=== PATIENT | female | born 1950 | race Caucasian/White ===

== ENCOUNTER → 2017-04-17 | Day surgery (SDC) | payer MEDICARE, OTHER ==
[~2017-04-17] MED LIST: CITA20TA5 PO; ISOM1TAB PO; IV RINGERS,LACTATED 1000ML 1,000 ML IV SCH; LEVO175T5 PO; METF500T4 PO; METO25TA4 PO; PANT40TA5 PO; PROPOFOL 20 ML IV ONE; TRAM50TA PO
[2017-04-17 08:52] VITALS: BP 133/82
== END | disposition home or self-care (01) ==
LOC: SURG 07:22
PROVIDERS: ATTEND Internal Medicine Gastroenterology
DX: Z12.11 Encounter for screening for malignant neoplasm of colon (principal); K64.1 Second degree hemorrhoids; Z80.0 Family history of malignant neoplasm of digestive organs; K22.2 Esophageal obstruction; D64.9 Anemia, unspecified; M19.90 Unspecified osteoarthritis, unspecified site; E11.9 Type 2 diabetes mellitus without complications; E03.9 Hypothyroidism, unspecified; Z72.89 Other problems related to lifestyle; Z90.710 Acquired absence of both cervix and uterus
CPT/HCPCS: 43235; 43450; G0105; J2704

== ENCOUNTER 2019-02-15 14:51 | Inpatient (IN) | payer MEDICARE ==
[~2019-02-15] VITALS: Ht 160 cm; Wt 81.4 kg
[~2019-02-15 14:51] MED LIST changes: -CITA20TA5 PO; +CITA20TA6 PO; -IV RINGERS,LACTATED 1000ML 1,000 ML IV SCH; +METF500T16 PO; -METF500T4 PO; -PROPOFOL 20 ML IV ONE
[2019-02-15] MEDS ORDERED: MORPHINE SULFATE 2 MG/ML VIAL. IV/SQ PRN (15:30)
[2019-02-15] MEDS ORDERED: NITROGLYCERIN SUBLINGUAL 0.4 MG BOTTLE OF 25. SL PRN ×2 (15:30→18:15)
[2019-02-15 15:48] LABS: BASO % 0 % (0-3); EOS # 0.3 x10^3/uL (0.0-0.7); EOS % 2 % (0-3); HEMATOCRIT 41.7 % (36.0-47.0); HEMOGLOBIN 14.2 g/dL (12.0-15.5); LYMPH # 2.6 x10^3/uL (1.0-4.8); LYMPH % 20 % (24-48); MEAN CORPUSCULAR HEMOGLOBIN 32 pg (25-35); MEAN CORPUSCULAR HGB CONC 34 g/dL (31-37); MEAN CORPUSCULAR VOLUME 95 fL (79-100); MONO # 0.8 x10^3/uL (0.0-1.1); MONO % 7 % (0-9); NEUT % 71 % (31-73); PLATELET COUNT 279 x10^3/uL (140-400); RED BLOOD COUNT 4.37 x10^6/uL (3.50-5.40); RED CELL DISTRIBUTION WIDTH 13.2 % (11.5-14.5); WHITE BLOOD COUNT 12.8 x10^3/uL (4.0-11.0)
[2019-02-15 15:54] LABS: PROTHROMBIN TIME PATIENT 12.2 SEC (11.7-14.0)
[2019-02-15 15:57] LABS: CALCIUM 9.5 mg/dL (8.5-10.1); CREATININE 0.9 mg/dL (0.6-1.0); GFR 62.5; POTASSIUM 3.7 mmol/L (3.5-5.1)
[2019-02-15 16:00] LABS: D-DIMER 1.85 ug/mlFEU (0.00-0.50)
--- NOTE | 2019-02-15 16:02 | EKG ---
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
[2019-02-15 16:03] LABS: ALBUMIN 4.1 g/dL (3.4-5.0); ALBUMIN/GLOBULIN RATIO 1.1 (1.0-1.7); MAGNESIUM 1.9 mg/dL (1.8-2.4); TOTAL BILIRUBIN 0.5 mg/dL (0.2-1.0); TOTAL PROTEIN 7.7 g/dL (6.4-8.2)
--- NOTE | 2019-02-15 16:03 | EKG ---
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
[2019-02-15] MEDS ORDERED: IOHEXOL 300 MG/ML 100ML VIAL. IV ONE (16:15)
[2019-02-15] MEDS ORDERED: CONTRAST GIVEN. MC PRN (16:15)
--- NOTE | 2019-02-15 16:32 | RAD ---
CT HEAD AND CERVICAL SPINE WO Indication: Pain after fall. Exposure: One or more of the following individualized dose reduction techniques were utilized for this examination: 1. Automated exposure control 2. Adjustment of the mA and/or kV according to patient size 3. Use of iterative reconstruction technique. Technique: Standard imaging without intravenous contrast. Head: No evidence of acute intracranial hemorrhage, mass effect, midline shift or abnormal extra-axial fluid collection. The ventricles and sulci appear symmetric. Rayo-white matter distinction is intact. The globes appear symmetric. There is right scalp density and swelling in the right frontal and temporal region, likely a hematoma. Partially visualized sinuses are clear. No evidence of depressed skull fracture. IMPRESSION: Right frontal scalp hematoma. No evidence of acute intracranial hemorrhage. Cervical spine: Ring of C1 is intact. Cervico-occipital junction is intact. C1 and C2 appears symmetric. No evidence of acute fracture or aggressive bone destruction. Vertebral body height is intact. No significant subluxation. No evidence of perched or locked facet joint. There is degenerative spondylosis, greatest at C5-C6 and C6-C7. Mild to moderate spinal canal narrowing as well as neural foraminal stenosis. Lung apices are clear. No evidence of prevertebral soft tissue swelling or hematoma. Thyroid demonstrates no focal lesion. IMPRESSION: Degenerative spondylosis. No evidence of acute fracture or subluxation. Electronically signed by: Ulices King MD (02/15/2019 4:29 PM) [facility]
--- NOTE | 2019-02-15 16:39 | RAD ---
CT scan of the thoracic spine without contrast 02/15/2019 CLINICAL HISTORY: Fall down stairs. Mid back pain TECHNIQUE: 3 mm reconstructed sagittal, axial and coronal images of the thoracic spine were obtained from the data set generated during the patient's CT scan of the chest abdomen and pelvis. One or more of the following individualized dose reduction techniques were utilized for this study: 1. Automated exposure control. 2. Adjustment of the mA and/or kV according to patient size. 3. Use of iterative reconstruction technique. , FINDINGS: Sagittal and coronal reconstructed images demonstrate minimal S-shaped curvature of the thoracolumbar spine. Degenerative changes are seen throughout the thoracic disc spaces consisting of vertebral endplate sclerosis and minimal to mild anterior vertebral body osteophyte formation. A relatively acute appearing compression fracture of the T11 vertebral body is seen. This vertebral body has lost approximately 10 percent of its normal height. No retropulsion of bone fragments into the central spinal canal is seen. No additional acute fracture of the thoracic vertebrae is noted. No subluxation is seen. IMPRESSION: Relatively acute compression fracture of the T11 vertebral body is seen. No retropulsion of bone fragments into the central spinal canal is noted. Electronically signed by: Brad Branch MD (02/15/2019 4:36 PM) [facility]
[2019-02-15 16:41] LABS: BILIRUBIN,URINE NEGATIVE (NEG); CLARITY,URINE CLEAR; COLOR,URINE YELLOW; NITRITE,URINE NEGATIVE (NEG); PH,URINE 5.5; PROTEIN,URINE NEGATIVE (NEG-TRACE); UROBILINOGEN,URINE 0.2 mg/dL (0.2 mg/dL)
[2019-02-15 16:48] LABS: AMPHETAMINE/METHAMPHETAMINE NEG (NEG); BARBITURATES NEG (NEG); BENZODIAZEPINES NEG (NEG); CANNABINOIDS NEG (NEG); COCAINE NEG (NEG); HYALINE CASTS, URINE FEW /HPF; METHADONE NEG (NEG); OPIATES NEG (NEG); PHENCYCLIDINE NEG (NEG); SQUAMOUS EPITHELIAL CELL,UR FEW /LPF
[2019-02-15 16:49] LABS: BACTERIA,URINE 0 /HPF (0-FEW)
--- NOTE | 2019-02-15 16:50 | RAD ---
CT LUMBAR SPINE RECONSTRUCTION, CT CHEST ABD PELVIS W/CONTRAST Indication: Chest and back pain after a fall. Exposure: One or more of the following individualized dose reduction techniques were utilized for this examination: 1. Automated exposure control 2. Adjustment of the mA and/or kV according to patient size 3. Use of iterative reconstruction technique. Technique: Intravenous contrast was given. No oral contrast per request. Comparison: No prior studies are currently available. CHEST: Thoracic aorta demonstrates no evidence of aneurysm or dissection, mildly tortuous. Main pulmonary artery is grossly patent. No pericardial effusion. No pleural effusion. No significant lymph node enlargement. Calcified nodule right lung base, compatible with a granuloma. No evidence of lung consolidation. No evidence of pneumothorax. Trachea and mainstem bronchi are grossly patent. No evidence of a displaced fracture although a specific area of pain or impact is not known. There is a compression fracture of the T11 vertebral body, will be more fully evaluated in the separate thoracic spine CT which is reported separately. IMPRESSION: No acute findings in the chest. T11 vertebral body fracture, reported separately. Abdomen pelvis: Liver and spleen appear unremarkable. No perihepatic or perisplenic fluid or stranding is seen. No peripancreatic fluid or stranding. No adrenal mass. Kidneys demonstrate symmetric enhancement without hydronephrosis or abnormality. No calcified gallstone. Aorta mildly calcified and tortuous, no aneurysm or para-aortic hematoma. No significant lymph node enlargement. Minimal stranding within the central mesenteric fat. Small hiatal hernia. No significant small bowel distention. No evidence of acute colitis. The appendix is not well seen. No evidence of ascites or pneumoperitoneum. No evidence of an acute fracture of the skeletal pelvis. IMPRESSION: No acute findings in the abdomen or pelvis. Lumbar spine: The lumbar vertebral body height is maintained. Alignment is intact. No evidence of acute fracture or aggressive bone destruction. Sacroiliac joints appear intact. There is degenerative multilevel spondylosis. IMPRESSION: No evidence of acute fracture or subluxation of the lumbar spine. See separate thoracic spine CT report. Electronically signed by: Ulices King MD (02/15/2019 4:47 PM) [facility] [place]
--- NOTE | 2019-02-15 17:23 | PHYS DOC ---
Past Medical History Past Medical History: Hypothyroid (LAVELL BONILLA APRN) Past Surgical History: Hysterectomy, Oophorectomy, Other Additional Past Surgical Histo: R. ELBOW (LAVELL BONILLA APRN) Alcohol Use: None Drug Use: None (LAVELL BONILLA APRN) Adult General Chief Complaint Chief Complaint: MECHANICAL FALL HPI HPI Patient is a 68 year old female with a history of hypertension, hypothyroidism, who presents to the ED today to be evaluated status post falling. Patient states she had flat shoes on and was walking down some steps at home prior to coming to the ED, she states she believes she tripped on her feet and fell landing on her back and hitting her right forehead on the doorknob. Patient denies any loss of consciousness, denies being on any anticoagulants. She rates her pain at 8 out of 10 mostly on the right forehead, in between her shoulder blades, and substernal chest area. She states the substernal chest pain. She states most of the pain is worse on movement. Denies any hematuria. Denies any shortness of breath. She is in a c-collar. (LAVELL BONILLA APRN) Review of Systems Review of Systems Constitutional: Denies fever or chills [] Eyes: Denies change in visual acuity, redness, or eye pain [] HENT: Denies nasal congestion or sore throat [] Respiratory: Denies cough or shortness of breath [] Cardiovascular: Reports substernal chest pain. GI: Denies abdominal pain, nausea, vomiting, bloody stools or diarrhea [] : Denies dysuria or hematuria [] Musculoskeletal: Reports pain between her shoulder blades. Integument: Denies rash or skin lesions [] Neurologic: Reports right forehead pain, denies focal weakness or sensory changes [] All other systems were reviewed and found to be within normal limits, except as documented in this note. (LAVELL BONILLA APRN) Current Medications Current Medications Current Medications Medications (Trade) Dose Ordered Sig/Coleen Start Time Stop Time Status Last Admin Dose Admin Aspirin (Elroy Aspirin) 325 mg 1X ONCE 02/15/19 18:00 02/15/19 18:01 DC 02/15/19 17:58 325 MG Info (CONTRAST GIVEN -- Rx MONITORING) 1 each PRN DAILY PRN 02/15/19 16:15 02/17/19 16:14 Iohexol (Omnipaque 300 Mg/ml) 75 ml 1X ONCE 02/15/19 16:15 02/15/19 16:16 DC 02/15/19 16:20 75 ML Morphine Sulfate (Morphine Sulfate) 2 mg PRN Q15MIN PRN 02/15/19 15:30 02/16/19 15:29 DC Nitroglycerin (Nitrostat) 0.4 mg PRN Q5MIN PRN 02/15/19 15:30 02/16/19 15:29 DC 02/15/19 16:25 0.4 MG (ULICES WHITEHEAD DO) Allergies Allergies Allergies Coded Allergies Type Severity Reaction Last Updated Verified No Known Drug Allergies 04/17/17 No (ULICES WHITEHEAD DO) Physical Exam Physical Exam Constitutional: Well developed, well nourished, no acute distress, non-toxic appearance. [] HENT: Normocephalic, atraumatic, bilateral external ears normal, oropharynx moist, no oral exudates, nose normal. [] Eyes: PERRLA, EOMI, conjunctiva normal, no discharge. [] Neck: C-collar present. Limited range of motion to the cervical spine due to the c-collar. Slight tenderness on the paraspinal muscle of the left cervical spine, no midline cervical spine tenderness, supple, no stridor. [] Cardiovascular:Heart rate regular rhythm, no murmur [] Lungs & Thorax: Bilateral breath sounds clear to auscultation [] Abdomen: Bowel sounds normal, soft, no tenderness, no masses, no pulsatile masses. [] Skin: Warm, dry, no erythema, no rash. [] Back: Mild midline tenderness on palpation of thoracic spine, no CVA tenderness. [] Extremities: No tenderness, no cyanosis, no clubbing, ROM intact, no edema. [] Neurologic: Alert and oriented X 3, normal motor function, normal sensory function, no focal deficits noted. Cranial nerves II through XII intact. Right forehead with a contusion. Psychologic: Affect normal, judgement normal, mood normal. [] (LAVELL BONILLA APRN) Physical Exam Constitutional: Well developed, well nourished, no acute distress, non-toxic appearance. [] HENT: Normocephalic, atraumatic Eyes: PERRL, EOMI, conjunctiva normal, no discharge. [] Neck: C-collar in place. Cardiovascular: Heart rate regular rhythm Lungs & Thorax: Chest wall discomfort with palpation, bilateral breath sounds clear to auscultation [] Skin: Warm, dry, no erythema Extremities: No tenderness, ROM intact, no edema. [] Neurologic: Alert and oriented X 3, speech normal (WHITEHEAD,ULICES R DO) Current Patient Data Vital Signs Vital Signs Date Time Temp Pulse Resp B/P (MAP) Pulse Ox O2 Delivery O2 Flow Rate FiO2 02/15/19 18:01 82 97 02/15/19 17:31 19 02/15/19 16:25 194/80 02/15/19 15:03 97.7 Room Air 97.7 (WHITEHEAD,ULICES R DO) Lab Values Laboratory Tests Test 02/15/19 15:35 02/15/19 16:30 White Blood Count 12.8 x10^3/uL (4.0-11.0) H Red Blood Count 4.37 x10^6/uL (3.50-5.40) Hemoglobin 14.2 g/dL (12.0-15.5) Hematocrit 41.7 % (36.0-47.0) Mean Corpuscular Volume 95 fL (79-100) Mean Corpuscular Hemoglobin 32 pg (25-35) Mean Corpuscular Hemoglobin Concent 34 g/dL (31-37) Red Cell Distribution Width 13.2 % (11.5-14.5) Platelet Count 279 x10^3/uL (140-400) Neutrophils (%) (Auto) 71 % (31-73) Lymphocytes (%) (Auto) 20 % (24-48) L Monocytes (%) (Auto) 7 % (0-9) Eosinophils (%) (Auto) 2 % (0-3) Basophils (%) (Auto) 0 % (0-3) Neutrophils # (Auto) 9.0 x10^3uL (1.8-7.7) H Lymphocytes # (Auto) 2.6 x10^3/uL (1.0-4.8) Monocytes # (Auto) 0.8 x10^3/uL (0.0-1.1) Eosinophils # (Auto) 0.3 x10^3/uL (0.0-0.7) Basophils # (Auto) 0.0 x10^3/uL (0.0-0.2) Prothrombin Time 12.2 SEC (11.7-14.0) Prothrombin Time INR 0.9 (0.8-1.1) PTT 25 SEC (24-38) D-Dimer (Karin) 1.85 ug/mlFEU (0.00-0.50) H Sodium Level 139 mmol/L (136-145) Potassium Level 3.7 mmol/L (3.5-5.1) Chloride Level 101 mmol/L (98-107) Carbon Dioxide Level 26 mmol/L (21-32) Anion Gap 12 (6-14) Blood Urea Nitrogen 19 mg/dL (7-20) Creatinine 0.9 mg/dL (0.6-1.0) Estimated GFR (Cockcroft-Gault) 62.5 BUN/Creatinine Ratio 21 (6-20) H Glucose Level 112 mg/dL (70-99) H Calcium Level 9.5 mg/dL (8.5-10.1) Magnesium Level 1.9 mg/dL (1.8-2.4) Total Bilirubin 0.5 mg/dL (0.2-1.0) Aspartate Amino Transferase (AST) 23 U/L (15-37) Alanine Aminotransferase (ALT) 23 U/L (14-59) Alkaline Phosphatase 47 U/L (46-116) Creatine Kinase 121 U/L (26-192) Creatine Kinase MB (Mass) 2.9 ng/mL (0.0-3.6) Creatine Kinase MB Relative Index 2.4 % (0-4) Troponin I Quantitative < 0.017 ng/mL (0.000-0.055) VA-Rhr-F-Type Natriuretic Peptide 165 pg/mL (0-124) H Total Protein 7.7 g/dL (6.4-8.2) Albumin 4.1 g/dL (3.4-5.0) Albumin/Globulin Ratio 1.1 (1.0-1.7) Thyroid Stimulating Hormone (TSH) 12.445 uIU/mL (0.358-3.74) H Urine Collection Type Unknown Urine Color Yellow Urine Clarity Clear Urine pH 5.5 Urine Specific Dulzura 1.020 Urine Protein Negative mg/dL (NEG-TRACE) Urine Glucose (UA) Negative mg/dL (NEG) Urine Ketones (Stick) Negative mg/dL (NEG) Urine Blood Trace (NEG) Urine Nitrite Negative (NEG) Urine Bilirubin Negative (NEG) Urine Urobilinogen Dipstick 0.2 mg/dL (0.2 mg/dL) Urine Leukocyte Esterase Negative (NEG) Urine RBC 1-2 /HPF (0-2) Urine WBC 1-4 /HPF (0-4) Urine Squamous Epithelial Cells Few /LPF Urine Bacteria 0 /HPF (0-FEW) Urine Hyaline Casts Few /HPF Urine Mucus Slight /LPF Urine Opiates Screen Neg (NEG) Urine Methadone Screen Neg (NEG) Urine Barbiturates Neg (NEG) Urine Phencyclidine Screen Neg (NEG) Urine Amphetamine/Methamphetamine Neg (NEG) Urine Benzodiazepines Screen Neg (NEG) Urine Cocaine Screen Neg (NEG) Urine Cannabinoids Screen Neg (NEG) Urine Ethyl Alcohol Neg (NEG) Laboratory Tests 02/15/19 15:35 Laboratory Tests 02/15/19 15:35 (ULICES WHITEHEAD DO) EKG EKG Dr. Whitehead will document on the ED.[] (LAVELL BONILLA APRN) EKG @1500 NSR at 78bpm, ST depression II and V4-V6, nonspecific t wave inversion III and V1-V2, RBBB, no prior EKG per [facility] for comparison. @1540 NSR at 71bpm, ST depression II and V4-V6 and nonspecific t wave inversion III and V1-V2, RBBB, all remonstrated in comparison to prior from today. (ULICES WHITEHEAD DO) Radiology/Procedures Radiology/Procedures []PROCEDURE: CT CHEST ABD PELVIS W/CONTRAST CT LUMBAR SPINE RECONSTRUCTION, CT CHEST ABD PELVIS W/CONTRAST Indication: Chest and back pain after a fall. Exposure: One or more of the following individualized dose reduction techniques were utilized for this examination: 1. Automated exposure control 2. Adjustment of the mA and/or kV according to patient size 3. Use of iterative reconstruction technique. Technique: Intravenous contrast was given. No oral contrast per request. Comparison: No prior studies are currently available. CHEST: Thoracic aorta demonstrates no evidence of aneurysm or dissection, mildly tortuous. Main pulmonary artery is grossly patent. No pericardial effusion. No pleural effusion. No significant lymph node enlargement. Calcified nodule right lung base, compatible with a granuloma. No evidence of lung consolidation. No evidence of pneumothorax. Trachea and mainstem bronchi are grossly patent. No evidence of a displaced fracture although a specific area of pain or impact is not known. There is a compression fracture of the T11 vertebral body, will be more fully evaluated in the separate thoracic spine CT which is reported separately. IMPRESSION: No acute findings in the chest. T11 vertebral body fracture, reported separately. Abdomen pelvis: Liver and spleen appear unremarkable. No perihepatic or perisplenic fluid or stranding is seen. No peripancreatic fluid or stranding. No adrenal mass. Kidneys demonstrate symmetric enhancement without hydronephrosis or abnormality. No calcified gallstone. Aorta mildly calcified and tortuous, no aneurysm or para-aortic hematoma. No significant lymph node enlargement. Minimal stranding within the central mesenteric fat. Small hiatal hernia. No significant small bowel distention. No evidence of acute colitis. The appendix is not well seen. No evidence of ascites or pneumoperitoneum. No evidence of an acute fracture of the skeletal pelvis. IMPRESSION: No acute findings in the abdomen or pelvis. Lumbar spine: The lumbar vertebral body height is maintained. Alignment is intact. No evidence of acute fracture or aggressive bone destruction. Sacroiliac joints appear intact. There is degenerative multilevel spondylosis. IMPRESSION: No evidence of acute fracture or subluxation of the lumbar spine. See separate thoracic spine CT report. Electronically signed by: Ulices King MD (02/15/2019 4:47 PM) [facility] DICTATED and SIGNED BY: ULICES KING MD DATE: 02/15/19 1647 PROCEDURE: CT HEAD AND CERVICAL SPINE WO CT HEAD AND CERVICAL SPINE WO Indication: Pain after fall. Exposure: One or more of the following individualized dose reduction techniques were utilized for this examination: 1. Automated exposure control 2. Adjustment of the mA and/or kV according to patient size 3. Use of iterative reconstruction technique. Technique: Standard imaging without intravenous contrast. Head: No evidence of acute intracranial hemorrhage, mass effect, midline shift or abnormal extra-axial fluid collection. The ventricles and sulci appear symmetric. Rayo-white matter distinction is intact. The globes appear symmetric. There is right scalp density and swelling in the right frontal and temporal region, likely a hematoma. Partially visualized sinuses are clear. No evidence of depressed skull fracture. IMPRESSION: Right frontal scalp hematoma. No evidence of acute intracranial hemorrhage. Cervical spine: Ring of C1 is intact. Cervico-occipital junction is intact. C1 and C2 appears symmetric. No evidence of acute fracture or aggressive bone destruction. Vertebral body height is intact. No significant subluxation. No evidence of perched or locked facet joint. There is degenerative spondylosis, greatest at C5-C6 and C6-C7. Mild to moderate spinal canal narrowing as well as neural foraminal stenosis. Lung apices are clear. No evidence of prevertebral soft tissue swelling or hematoma. Thyroid demonstrates no focal lesion. IMPRESSION: Degenerative spondylosis. No evidence of acute fracture or subluxation. Electronically signed by: Ulices King MD (02/15/2019 4:29 PM) [facility] [place] DICTATED and SIGNED BY: ULICES KING MD DATE: 02/15/19 4657 (LAVELL BONILLA APRN) Course & Med Decision Making Course & Med Decision Making Pertinent Labs and Imaging studies reviewed. (See chart for details) This is a 68-year-old female patient presenting to the ED today status post falling down 7 steps. No loss of consciousness. Patient had an EKG done, EKG was abnormal, EKG was reviewed by Dr. Whitehead and . Patient was admitted for the abnormal EKG. Troponin is normal. CBC with a WBC of 12.8, CMP with no acute findings, TSH 12.445-Dr. Washington stated he will increase patient's Synthroid. CT of the head, cervical spine, lumbar spine, negative for any acute findings, thoracic CT noted for T11 fracture, patient states she believes this is chronic. Routine consult placed for neurosurgery. CTA chest and abdomen were negative. Dr. Washington accepted patient for admission. Repeat troponins were placed. Dr. Starks will f/u with patient. Admitted on CVC (LAVELL BONILLA APRN) Course & Med Decision Making Discussed case with Dr. Starks (cardiology) who evaluated EKGs and does not appreciated STEMI findings. Recommends serial troponin and supportive care at this time. (ULICES WHITEHEAD DO) Dragon Disclaimer Dragon Disclaimer This electronic medical record was generated, in whole or in part, using a voice recognition dictation system. (LAVELL BONILLA APRN) Departure Departure Impression: Primary Impression: Abnormal EKG Additional Impressions: Hypothyroidism T11 vertebral fracture Fall Disposition: ADMITTED INPATIENT Condition: STABLE Referrals: EMETERIO TANNER MD (PCP) Attending Signature Attending Signature I have personally interviewed and examined the patient. All charts, labs, and im aging studies were reviewed. I agree with the PA/SPORTS MEDICINE PHYSICIAN's findings, exam, and plan. (ULICES WHITEHEAD DO) Problem Qualifiers Additional Impressions: Hypothyroidism Hypothyroidism type: unspecified Qualified Codes: E03.9 - Hypothyroidism, unspecified T11 vertebral fracture Encounter type: initial encounter Fracture type: closed Fracture morphology: other fracture Qualified Codes: S22.088A - Other fracture of t11-T12 vertebra, initial encounter for closed fracture Fall Encounter type: initial encounter Qualified Codes: W19.XXXA - Unspecified fall, initial encounter LAVELL BONILLA APRN February 15, 2019 17:23 ULICES WHITEHEAD DO February 15, 2019 20:11
[2019-02-15] MEDS ORDERED: ASPIRIN 325 MG TABLET PO ONE (18:00)
[2019-02-15] MEDS ORDERED: MORPHINE SULFATE 4 MG/ML VIAL. IV PRN (18:15)
[2019-02-15] MEDS ORDERED: ONDANSETRON PF 4 MG/2 ML VIAL. IV PRN (18:15)
--- NOTE | 2019-02-15 18:53 | HP ---
ADMIT DATE: 02/15/2019 CHIEF COMPLAINT: Mechanical fall. HISTORY OF PRESENT ILLNESS: The patient is a pleasant 68-year-old female who fell. She was wearing some flat shoes and fell down some stairs. She did strike her head. In fact, the door, which is made of steel has a big dent in it. She was brought in by ambulance, when we manda the lab, her TSH was quite high at 12. She admits that she has not been taking her Synthroid or some of her other meds as well. Rates her pain at 8/10. She has associated weakness, worse with moving, better with sitting still, described as irritating. I discussed the case with the ER physician. We are going to admit the patient and consult Cardiology because she does complain of some chest pain as well. PAST MEDICAL HISTORY: Hypothyroidism, noncompliance, hysterectomy, oophorectomy, right elbow surgery. ALLERGIES: None. FAMILY HISTORY: Coronary artery disease. SOCIAL HISTORY: She does not drink, smoke or take drugs. She is . Her is on hospice. She is pretty upset about this, was even crying at one time while I was examining her. PHYSICAL EXAMINATION: HEART: Normal S1, S2. LUNGS: Clear to auscultation. ABDOMEN: Soft, positive bowel sounds. EXTREMITIES: Trace edema. SKIN: No rashes. She does have a big abrasion, right forehead. ENDOCRINE: No thyromegaly. LYMPHATICS: No cervical nodes. HEMATOLOGY: No apparent bruising. PSYCHIATRIC: She is depressed. NEUROLOGICAL: She is alert and oriented, moving all extremities. LABORATORY DATA: White count is 12.8, hemoglobin 14, platelets 279. Urinalysis negative. Her troponin is 0. CPK 2.9, albumin 4.1, creatinine 0.9. Chest x-ray was negative, but she does have a T11 compression fracture. ASSESSMENT AND PLAN: Fall with compression fracture and chest pain. The patient has been admitted. We will consult Cardiology. Continue home medicines. I did increase her Synthroid, PT, OT, frequent labs, IV hydration. Wound care. TOTAL TIME: 32 minutes. DANILO HAMILTON DO DR: NATAN/king JOB#: [id number] / [id number]
[2019-02-15] MEDS ORDERED: ASA/APAP/CAFFEINE 250/250/65MG TABLET. PO PRN (19:30)
[2019-02-15 20:20] VITALS: BP 175/99
[2019-02-15] MEDS ORDERED: LEVO75TA5 PO (22:44)
[2019-02-15] MEDS ORDERED: LISI10TA2 PO (22:44)
[2019-02-15 23:00] VITALS: BP 176/84
[2019-02-15] MEDS: traMADol 50 MG TABLET PO PRN (23:09)
[2019-02-15] MEDS: LISINOPRIL 10 MG TABLET PO SCH (23:10)
[2019-02-16] MEDS: ACETAMINOPHEN 325 MG TABLET. PO PRN ×2 (02:00→16:18)
[2019-02-16 03:00] VITALS: BP 135/73
[2019-02-16] MEDS ORDERED: LEVOTHYROXINE 125 MCG TABLET PO SCH (06:00)
[2019-02-16] MEDS ORDERED: LEVOTHYROXINE 100 MCG TABLET PO SCH (06:00)
[2019-02-16 06:08] LABS: BASO % 0 % (0-3); EOS # 0.2 x10^3/uL (0.0-0.7); EOS % 2 % (0-3); HEMATOCRIT 39.4 % (36.0-47.0); HEMOGLOBIN 13.7 g/dL (12.0-15.5); LYMPH % 22 % (24-48); MEAN CORPUSCULAR HEMOGLOBIN 33 pg (25-35); MEAN CORPUSCULAR HGB CONC 35 g/dL (31-37); MEAN CORPUSCULAR VOLUME 95 fL (79-100); MONO # 0.9 x10^3/uL (0.0-1.1); MONO % 10 % (0-9); NEUT # 6.1 x10^3uL (1.8-7.7); NEUT % 66 % (31-73); PLATELET COUNT 267 x10^3/uL (140-400); RED BLOOD COUNT 4.14 x10^6/uL (3.50-5.40); RED CELL DISTRIBUTION WIDTH 13.2 % (11.5-14.5); WHITE BLOOD COUNT 9.2 x10^3/uL (4.0-11.0)
[2019-02-16 06:21] LABS: CALCIUM 9.2 mg/dL (8.5-10.1); CREATININE 0.9 mg/dL (0.6-1.0); GFR 62.5; POTASSIUM 4.7 mmol/L (3.5-5.1)
[2019-02-16 07:00] VITALS: BP 145/75
[2019-02-16] MEDS ORDERED: PANTOPRAZOLE 40 MG TABLET.DR. PO SCH (07:30)
[2019-02-16] MEDS: LEVOTHYROXINE 75 MCG TABLET PO SCH (09:03)
[2019-02-16] MEDS: traMADol 50 MG TABLET PO PRN (09:04)
--- NOTE | 2019-02-16 09:38 | PDOC2 ---
CARDIAC CONSULT DATE OF CONSULT Date of Consult DATE: 02/16/19 TIME: 09:32 REASON FOR CONSULT Reason for Consult: Abnormal EKG REFERRING PHYSICIAN Referring Physician: Donya Fontanez APRN SOURCE Source: Chart review, Patient HISTORY OF PRESENT ILLNESS HISTORY OF PRESENT ILLNESS This is a 68 yo female who presented secondary to falling down stairs prior to arrival. Patient reports she was going down the stairs with flats on. Thinks she slipped ad began falling. Was able to grabbed the railing. Went down 8 stairs was feel head first into a metal door at the bottom of the stairs. No LOC. Denies any precipitating dizziness, diaphoresis, palpitations, chest pain, or shortness of breath. C/o upper back and left shoulder pain and headache. Does reports experiencing intermittent central sharp chest pain intermittently for the last month or so. Occasionally gets tingling in her finger and pain across her shoulder blades in her upper back. No specific precipitating or worsening factors. No associated SOA, dizziness, diaphoresis, or nausea/vomiting. EKG notable for RBBB. Patient thinks she may have been told this before. Reports having stress test at [facility] within the last couple of years that was reportedly normal. 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 PAST MEDICAL HISTORY Cardiovascular: HTN Pulmonary: No pertinent hx GI: GERD Heme/Onc: Anemia NOS Hepatobiliary: No pertinent hx Psych: No pertinent hx Musculoskeletal: Osteoarthritis Infectious disease: No pertinent hx ENT: No pertinent hx Renal/: No pertinent hx Endocrine: Diabetes, Hypothyroidism Dermatology: No pertinent hx PAST SURGICAL HISTORY Past Surgical History: Tonsillectomy, Hysterectomy, Other (oophorectomy ) FAMILY HISTORY Family History: Coronary Artery Disease, Diabetes, Hypertension SOCIAL HISTORY Smoke: No ALCOHOL: none Drugs: None Lives: with Family CURRENT MEDICATIONS CURRENT MEDICATIONS Current Medications Medications (Trade) Dose Ordered Sig/Coleen Route PRN Reason Start Time Stop Time Status Last Admin Dose Admin Nitroglycerin (Nitrostat) 0.4 mg PRN Q5MIN PRN SL CP RATING > 1/10 02/15/19 15:30 02/16/19 15:29 02/15/19 16:25 Iohexol (Omnipaque 300 Mg/ml) 75 ml 1X ONCE IV 02/15/19 16:15 02/15/19 16:16 DC 02/15/19 16:20 Aspirin (Elroy Aspirin) 325 mg 1X ONCE PO 02/15/19 18:00 02/15/19 18:01 DC 02/15/19 17:58 Tramadol HCl (Ultram) 50 mg PRN Q6HRS PRN PO PAIN 02/15/19 18:15 02/16/19 09:04 Acetaminophen (Tylenol) 650 mg PRN Q4HRS PRN PO FEVER 02/15/19 18:15 02/16/19 18:14 02/16/19 02:00 Levothyroxine Sodium (Synthroid) 75 mcg DAILY06 PO 02/16/19 06:00 02/16/19 09:03 Lisinopril (Prinivil) 10 mg DAILY PO 02/15/19 23:00 02/15/19 23:10 ALLERGIES ALLERGIES: Coded Allergies: No Known Drug Allergies (Unverified , 04/17/17) ROS Review of System 14 point ROS conducted with pertinent positives noted above in HPI PHYSICAL EXAM General: Alert, Oriented X3, Cooperative, No acute distress HEENT: Atraumatic, Mucous membr. moist/pink Lungs: Clear to auscultation, Normal air movement Heart: Regular rate, Normal S1, Normal S2, No murmurs Abdomen: Soft, No tenderness Extremities: No cyanosis, No edema, Normal pulses Skin: No significant lesion Neuro: Normal speech, Strength at 5/5 X4 ext, Sensation intact Psych/Mental Status: Mental status NL, Mood NL MUSCULOSKELETAL: Osteoarthritic changes both hands VITALS VITALS Vital Signs Date Time Temp Pulse Resp B/P (MAP) Pulse Ox O2 Delivery O2 Flow Rate FiO2 02/16/19 09:04 18 Room Air 02/16/19 08:00 97.0 02/16/19 07:00 97.9 63 145/75 (98) 97.9 02/16/19 03:00 96 LABS Lab: Laboratory Tests Test 02/15/19 15:35 02/15/19 16:30 02/15/19 20:45 02/16/19 05:40 White Blood Count 12.8 x10^3/uL (4.0-11.0) 9.2 x10^3/uL (4.0-11.0) Red Blood Count 4.37 x10^6/uL (3.50-5.40) 4.14 x10^6/uL (3.50-5.40) Hemoglobin 14.2 g/dL (12.0-15.5) 13.7 g/dL (12.0-15.5) Hematocrit 41.7 % (36.0-47.0) 39.4 % (36.0-47.0) Mean Corpuscular Volume 95 fL (79-100) 95 fL (79-100) Mean Corpuscular Hemoglobin 32 pg (25-35) 33 pg (25-35) Mean Corpuscular Hemoglobin Concent 34 g/dL (31-37) 35 g/dL (31-37) Red Cell Distribution Width 13.2 % (11.5-14.5) 13.2 % (11.5-14.5) Platelet Count 279 x10^3/uL (140-400) 267 x10^3/uL (140-400) Neutrophils (%) (Auto) 71 % (31-73) 66 % (31-73) Lymphocytes (%) (Auto) 20 % (24-48) 22 % (24-48) Monocytes (%) (Auto) 7 % (0-9) 10 % (0-9) Eosinophils (%) (Auto) 2 % (0-3) 2 % (0-3) Basophils (%) (Auto) 0 % (0-3) 0 % (0-3) Neutrophils # (Auto) 9.0 x10^3uL (1.8-7.7) 6.1 x10^3uL (1.8-7.7) Lymphocytes # (Auto) 2.6 x10^3/uL (1.0-4.8) 2.0 x10^3/uL (1.0-4.8) Monocytes # (Auto) 0.8 x10^3/uL (0.0-1.1) 0.9 x10^3/uL (0.0-1.1) Eosinophils # (Auto) 0.3 x10^3/uL (0.0-0.7) 0.2 x10^3/uL (0.0-0.7) Basophils # (Auto) 0.0 x10^3/uL (0.0-0.2) 0.0 x10^3/uL (0.0-0.2) Prothrombin Time 12.2 SEC (11.7-14.0) Prothromb Time International Ratio 0.9 (0.8-1.1) Activated Partial Thromboplast Time 25 SEC (24-38) D-Dimer (Karin) 1.85 ug/mlFEU (0.00-0.50) Sodium Level 139 mmol/L (136-145) 142 mmol/L (136-145) Potassium Level 3.7 mmol/L (3.5-5.1) 4.7 mmol/L (3.5-5.1) Chloride Level 101 mmol/L (98-107) 105 mmol/L (98-107) Carbon Dioxide Level 26 mmol/L (21-32) 27 mmol/L (21-32) Anion Gap 12 (6-14) 10 (6-14) Blood Urea Nitrogen 19 mg/dL (7-20) 18 mg/dL (7-20) Creatinine 0.9 mg/dL (0.6-1.0) 0.9 mg/dL (0.6-1.0) Estimated GFR (Cockcroft-Gault) 62.5 62.5 BUN/Creatinine Ratio 21 (6-20) Glucose Level 112 mg/dL (70-99) 121 mg/dL (70-99) Calcium Level 9.5 mg/dL (8.5-10.1) 9.2 mg/dL (8.5-10.1) Magnesium Level 1.9 mg/dL (1.8-2.4) Total Bilirubin 0.5 mg/dL (0.2-1.0) Aspartate Amino Transf (AST/SGOT) 23 U/L (15-37) Alanine Aminotransferase (ALT/SGPT) 23 U/L (14-59) Alkaline Phosphatase 47 U/L (46-116) Creatine Kinase 121 U/L (26-192) Creatine Kinase MB (Mass) 2.9 ng/mL (0.0-3.6) Creatine Kinase MB Relative Index 2.4 % (0-4) Troponin I Quantitative < 0.017 ng/mL (0.000-0.055) < 0.017 ng/mL (0.000-0.055) < 0.017 ng/mL (0.000-0.055) ET-Ici-D-Type Natriuretic Peptide 165 pg/mL (0-124) Total Protein 7.7 g/dL (6.4-8.2) Albumin 4.1 g/dL (3.4-5.0) Albumin/Globulin Ratio 1.1 (1.0-1.7) Thyroid Stimulating Hormone (TSH) 12.445 uIU/mL (0.358-3.74) Urine Collection Type Unknown Urine Color Yellow Urine Clarity Clear Urine pH 5.5 Urine Specific [place] 1.020 Urine Protein Negative mg/dL (NEG-TRACE) Urine Glucose (UA) Negative mg/dL (NEG) Urine Ketones (Stick) Negative mg/dL (NEG) Urine Blood Trace (NEG) Urine Nitrite Negative (NEG) Urine Bilirubin Negative (NEG) Urine Urobilinogen Dipstick 0.2 mg/dL (0.2 mg/dL) Urine Leukocyte Esterase Negative (NEG) Urine RBC 1-2 /HPF (0-2) Urine WBC 1-4 /HPF (0-4) Urine Squamous Epithelial Cells Few /LPF Urine Bacteria 0 /HPF (0-FEW) Urine Hyaline Casts Few /HPF Urine Mucus Slight /LPF Urine Opiates Screen Neg (NEG) Urine Methadone Screen Neg (NEG) Urine Barbiturates Neg (NEG) Urine Phencyclidine Screen Neg (NEG) Urine Amphetamine/Methamphetamine Neg (NEG) Urine Benzodiazepines Screen Neg (NEG) Urine Cocaine Screen Neg (NEG) Urine Cannabinoids Screen Neg (NEG) Urine Ethyl Alcohol Neg (NEG) ASSESSMENT/PLAN ASSESSMENT/PLAN 1. Mechanical fall, traumatic with T11 vertebral body fracture and left shoulder pain. Ortho consulted. 2. Abnormal EKG; EKG with RBBB. No previous for comparison 3. Accelerated hypertension; labile 4. Chest pain, atypical. Intermittent for the last month or so. AMI ruled out 4. Diabetes, II; as per PCP 5. Hypothyroidism; TSH 12 Recommendations Echo to assess LV systolic function Lipid panel- statin if indicated Resume home antiHTN therapy. Monitor to assess need for therapy titration. Hydralazine IV PRN Consider outpatient ischemic eval Supportive care BAL MTZ APRN February 16, 2019 09:38
[2019-02-16 10:16] LABS: CHOLESTEROL/HDL RATIO 5.4
[2019-02-16] MEDS: CITALOPRAM 20 MG TABLET. PO SCH (10:38)
[2019-02-16] MEDS: METOPROLOL TART IMMED RELEASE 25 MG TABLET. PO SCH (10:39)
[2019-02-16] MEDS: LISINOPRIL 10 MG TABLET PO SCH (10:40)
--- NOTE | 2019-02-16 10:57 | PDOC ---
[employer] PROGRESS NOTE Chief Complaint Chief Complaint Mechanical fall T-11 fracture Chest pain Hypothyroidism History of Present Illness History of Present Illness Patient seen and examined Her level of distress has decreased since admission She complains of global body aches, prominently L shoulder pain and neck tension Discussed with family Vitals Vitals Vital Signs Date Time Temp Pulse Resp B/P (MAP) Pulse Ox O2 Delivery O2 Flow Rate FiO2 02/16/19 10:40 63 145/75 02/16/19 09:04 18 Room Air 02/16/19 08:00 97.0 02/16/19 07:00 97.9 97.9 02/16/19 03:00 96 Physical Exam General: Alert, Oriented X3, Cooperative, mild distress Heart: Regular rate, Normal S1 Abdomen: Normal bowel sounds, Soft Extremities: No clubbing, No cyanosis Skin: No rashes, Other (multiple bruises) Labs LABS Laboratory Tests Test 02/15/19 15:35 02/15/19 16:30 02/15/19 20:45 02/16/19 05:40 White Blood Count 12.8 x10^3/uL (4.0-11.0) 9.2 x10^3/uL (4.0-11.0) Red Blood Count 4.37 x10^6/uL (3.50-5.40) 4.14 x10^6/uL (3.50-5.40) Hemoglobin 14.2 g/dL (12.0-15.5) 13.7 g/dL (12.0-15.5) Hematocrit 41.7 % (36.0-47.0) 39.4 % (36.0-47.0) Mean Corpuscular Volume 95 fL (79-100) 95 fL (79-100) Mean Corpuscular Hemoglobin 32 pg (25-35) 33 pg (25-35) Mean Corpuscular Hemoglobin Concent 34 g/dL (31-37) 35 g/dL (31-37) Red Cell Distribution Width 13.2 % (11.5-14.5) 13.2 % (11.5-14.5) Platelet Count 279 x10^3/uL (140-400) 267 x10^3/uL (140-400) Neutrophils (%) (Auto) 71 % (31-73) 66 % (31-73) Lymphocytes (%) (Auto) 20 % (24-48) 22 % (24-48) Monocytes (%) (Auto) 7 % (0-9) 10 % (0-9) Eosinophils (%) (Auto) 2 % (0-3) 2 % (0-3) Basophils (%) (Auto) 0 % (0-3) 0 % (0-3) Neutrophils # (Auto) 9.0 x10^3uL (1.8-7.7) 6.1 x10^3uL (1.8-7.7) Lymphocytes # (Auto) 2.6 x10^3/uL (1.0-4.8) 2.0 x10^3/uL (1.0-4.8) Monocytes # (Auto) 0.8 x10^3/uL (0.0-1.1) 0.9 x10^3/uL (0.0-1.1) Eosinophils # (Auto) 0.3 x10^3/uL (0.0-0.7) 0.2 x10^3/uL (0.0-0.7) Basophils # (Auto) 0.0 x10^3/uL (0.0-0.2) 0.0 x10^3/uL (0.0-0.2) Prothrombin Time 12.2 SEC (11.7-14.0) Prothromb Time International Ratio 0.9 (0.8-1.1) Activated Partial Thromboplast Time 25 SEC (24-38) D-Dimer (Karin) 1.85 ug/mlFEU (0.00-0.50) Sodium Level 139 mmol/L (136-145) 142 mmol/L (136-145) Potassium Level 3.7 mmol/L (3.5-5.1) 4.7 mmol/L (3.5-5.1) Chloride Level 101 mmol/L (98-107) 105 mmol/L (98-107) Carbon Dioxide Level 26 mmol/L (21-32) 27 mmol/L (21-32) Anion Gap 12 (6-14) 10 (6-14) Blood Urea Nitrogen 19 mg/dL (7-20) 18 mg/dL (7-20) Creatinine 0.9 mg/dL (0.6-1.0) 0.9 mg/dL (0.6-1.0) Estimated GFR (Cockcroft-Gault) 62.5 62.5 BUN/Creatinine Ratio 21 (6-20) Glucose Level 112 mg/dL (70-99) 121 mg/dL (70-99) Calcium Level 9.5 mg/dL (8.5-10.1) 9.2 mg/dL (8.5-10.1) Magnesium Level 1.9 mg/dL (1.8-2.4) Total Bilirubin 0.5 mg/dL (0.2-1.0) Aspartate Amino Transf (AST/SGOT) 23 U/L (15-37) Alanine Aminotransferase (ALT/SGPT) 23 U/L (14-59) Alkaline Phosphatase 47 U/L (46-116) Creatine Kinase 121 U/L (26-192) Creatine Kinase MB (Mass) 2.9 ng/mL (0.0-3.6) Creatine Kinase MB Relative Index 2.4 % (0-4) Troponin I Quantitative < 0.017 ng/mL (0.000-0.055) < 0.017 ng/mL (0.000-0.055) < 0.017 ng/mL (0.000-0.055) VY-Zij-U-Type Natriuretic Peptide 165 pg/mL (0-124) Total Protein 7.7 g/dL (6.4-8.2) Albumin 4.1 g/dL (3.4-5.0) Albumin/Globulin Ratio 1.1 (1.0-1.7) Thyroid Stimulating Hormone (TSH) 12.445 uIU/mL (0.358-3.74) Urine Collection Type Unknown Urine Color Yellow Urine Clarity Clear Urine pH 5.5 Urine Specific [place] 1.020 Urine Protein Negative mg/dL (NEG-TRACE) Urine Glucose (UA) Negative mg/dL (NEG) Urine Ketones (Stick) Negative mg/dL (NEG) Urine Blood Trace (NEG) Urine Nitrite Negative (NEG) Urine Bilirubin Negative (NEG) Urine Urobilinogen Dipstick 0.2 mg/dL (0.2 mg/dL) Urine Leukocyte Esterase Negative (NEG) Urine RBC 1-2 /HPF (0-2) Urine WBC 1-4 /HPF (0-4) Urine Squamous Epithelial Cells Few /LPF Urine Bacteria 0 /HPF (0-FEW) Urine Hyaline Casts Few /HPF Urine Mucus Slight /LPF Urine Opiates Screen Neg (NEG) Urine Methadone Screen Neg (NEG) Urine Barbiturates Neg (NEG) Urine Phencyclidine Screen Neg (NEG) Urine Amphetamine/Methamphetamine Neg (NEG) Urine Benzodiazepines Screen Neg (NEG) Urine Cocaine Screen Neg (NEG) Urine Cannabinoids Screen Neg (NEG) Urine Ethyl Alcohol Neg (NEG) Triglycerides Level 218 mg/dL (0-150) Cholesterol Level 200 mg/dL (0-200) LDL Cholesterol, Calculated 119 mg/dL (0-100) VLDL Cholesterol, Calculated 44 mg/dL (0-40) Non-HDL Cholesterol Calculated 163 mg/dL (0-129) HDL Cholesterol 37 mg/dL (40-60) Cholesterol/HDL Ratio 5.4 Review of Systems Review of Systems Patient complains of L shoulder pain Patient complains of increased neck tension Patient denies abdominal pain Assessment and Plan Assessmemt and Plan Assessment: Mechanical fall T-11 fracture Chest pain Hypothyroidism- TSH 12.4 Plan: Cardiac Monitoring Pain meds prn Home meds PT/OT DVT ppx Full code IR consult T-11 fracture consider kyphoplasty Ortho consult- L shoulder injury Cardio and Pulm are currently following Await subspecialist input Comment Review of Relevant I have reviewed the following items david (where applicable) has been applied. Labs Laboratory Tests Test 02/15/19 15:35 02/15/19 16:30 02/15/19 20:45 02/16/19 05:40 White Blood Count 12.8 x10^3/uL (4.0-11.0) 9.2 x10^3/uL (4.0-11.0) Red Blood Count 4.37 x10^6/uL (3.50-5.40) 4.14 x10^6/uL (3.50-5.40) Hemoglobin 14.2 g/dL (12.0-15.5) 13.7 g/dL (12.0-15.5) Hematocrit 41.7 % (36.0-47.0) 39.4 % (36.0-47.0) Mean Corpuscular Volume 95 fL (79-100) 95 fL (79-100) Mean Corpuscular Hemoglobin 32 pg (25-35) 33 pg (25-35) Mean Corpuscular Hemoglobin Concent 34 g/dL (31-37) 35 g/dL (31-37) Red Cell Distribution Width 13.2 % (11.5-14.5) 13.2 % (11.5-14.5) Platelet Count 279 x10^3/uL (140-400) 267 x10^3/uL (140-400) Neutrophils (%) (Auto) 71 % (31-73) 66 % (31-73) Lymphocytes (%) (Auto) 20 % (24-48) 22 % (24-48) Monocytes (%) (Auto) 7 % (0-9) 10 % (0-9) Eosinophils (%) (Auto) 2 % (0-3) 2 % (0-3) Basophils (%) (Auto) 0 % (0-3) 0 % (0-3) Neutrophils # (Auto) 9.0 x10^3uL (1.8-7.7) 6.1 x10^3uL (1.8-7.7) Lymphocytes # (Auto) 2.6 x10^3/uL (1.0-4.8) 2.0 x10^3/uL (1.0-4.8) Monocytes # (Auto) 0.8 x10^3/uL (0.0-1.1) 0.9 x10^3/uL (0.0-1.1) Eosinophils # (Auto) 0.3 x10^3/uL (0.0-0.7) 0.2 x10^3/uL (0.0-0.7) Basophils # (Auto) 0.0 x10^3/uL (0.0-0.2) 0.0 x10^3/uL (0.0-0.2) Prothrombin Time 12.2 SEC (11.7-14.0) Prothromb Time International Ratio 0.9 (0.8-1.1) Activated Partial Thromboplast Time 25 SEC (24-38) D-Dimer (Karin) 1.85 ug/mlFEU (0.00-0.50) Sodium Level 139 mmol/L (136-145) 142 mmol/L (136-145) Potassium Level 3.7 mmol/L (3.5-5.1) 4.7 mmol/L (3.5-5.1) Chloride Level 101 mmol/L (98-107) 105 mmol/L (98-107) Carbon Dioxide Level 26 mmol/L (21-32) 27 mmol/L (21-32) Anion Gap 12 (6-14) 10 (6-14) Blood Urea Nitrogen 19 mg/dL (7-20) 18 mg/dL (7-20) Creatinine 0.9 mg/dL (0.6-1.0) 0.9 mg/dL (0.6-1.0) Estimated GFR (Cockcroft-Gault) 62.5 62.5 BUN/Creatinine Ratio 21 (6-20) Glucose Level 112 mg/dL (70-99) 121 mg/dL (70-99) Calcium Level 9.5 mg/dL (8.5-10.1) 9.2 mg/dL (8.5-10.1) Magnesium Level 1.9 mg/dL (1.8-2.4) Total Bilirubin 0.5 mg/dL (0.2-1.0) Aspartate Amino Transf (AST/SGOT) 23 U/L (15-37) Alanine Aminotransferase (ALT/SGPT) 23 U/L (14-59) Alkaline Phosphatase 47 U/L (46-116) Creatine Kinase 121 U/L (26-192) Creatine Kinase MB (Mass) 2.9 ng/mL (0.0-3.6) Creatine Kinase MB Relative Index 2.4 % (0-4) Troponin I Quantitative < 0.017 ng/mL (0.000-0.055) < 0.017 ng/mL (0.000-0.055) < 0.017 ng/mL (0.000-0.055) JC-Gwt-W-Type Natriuretic Peptide 165 pg/mL (0-124) Total Protein 7.7 g/dL (6.4-8.2) Albumin 4.1 g/dL (3.4-5.0) Albumin/Globulin Ratio 1.1 (1.0-1.7) Thyroid Stimulating Hormone (TSH) 12.445 uIU/mL (0.358-3.74) Urine Collection Type Unknown Urine Color Yellow Urine Clarity Clear Urine pH 5.5 Urine Specific [place] 1.020 Urine Protein Negative mg/dL (NEG-TRACE) Urine Glucose (UA) Negative mg/dL (NEG) Urine Ketones (Stick) Negative mg/dL (NEG) Urine Blood Trace (NEG) Urine Nitrite Negative (NEG) Urine Bilirubin Negative (NEG) Urine Urobilinogen Dipstick 0.2 mg/dL (0.2 mg/dL) Urine Leukocyte Esterase Negative (NEG) Urine RBC 1-2 /HPF (0-2) Urine WBC 1-4 /HPF (0-4) Urine Squamous Epithelial Cells Few /LPF Urine Bacteria 0 /HPF (0-FEW) Urine Hyaline Casts Few /HPF Urine Mucus Slight /LPF Urine Opiates Screen Neg (NEG) Urine Methadone Screen Neg (NEG) Urine Barbiturates Neg (NEG) Urine Phencyclidine Screen Neg (NEG) Urine Amphetamine/Methamphetamine Neg (NEG) Urine Benzodiazepines Screen Neg (NEG) Urine Cocaine Screen Neg (NEG) Urine Cannabinoids Screen Neg (NEG) Urine Ethyl Alcohol Neg (NEG) Triglycerides Level 218 mg/dL (0-150) Cholesterol Level 200 mg/dL (0-200) LDL Cholesterol, Calculated 119 mg/dL (0-100) VLDL Cholesterol, Calculated 44 mg/dL (0-40) Non-HDL Cholesterol Calculated 163 mg/dL (0-129) HDL Cholesterol 37 mg/dL (40-60) Cholesterol/HDL Ratio 5.4 Laboratory Tests Test 02/15/19 15:35 02/15/19 16:30 02/15/19 20:45 02/16/19 05:40 White Blood Count 12.8 x10^3/uL (4.0-11.0) 9.2 x10^3/uL (4.0-11.0) Red Blood Count 4.37 x10^6/uL (3.50-5.40) 4.14 x10^6/uL (3.50-5.40) Hemoglobin 14.2 g/dL (12.0-15.5) 13.7 g/dL (12.0-15.5) Hematocrit 41.7 % (36.0-47.0) 39.4 % (36.0-47.0) Mean Corpuscular Volume 95 fL (79-100) 95 fL (79-100) Mean Corpuscular Hemoglobin 32 pg (25-35) 33 pg (25-35) Mean Corpuscular Hemoglobin Concent 34 g/dL (31-37) 35 g/dL (31-37) Red Cell Distribution Width 13.2 % (11.5-14.5) 13.2 % (11.5-14.5) Platelet Count 279 x10^3/uL (140-400) 267 x10^3/uL (140-400) Neutrophils (%) (Auto) 71 % (31-73) 66 % (31-73) Lymphocytes (%) (Auto) 20 % (24-48) 22 % (24-48) Monocytes (%) (Auto) 7 % (0-9) 10 % (0-9) Eosinophils (%) (Auto) 2 % (0-3) 2 % (0-3) Basophils (%) (Auto) 0 % (0-3) 0 % (0-3) Neutrophils # (Auto) 9.0 x10^3uL (1.8-7.7) 6.1 x10^3uL (1.8-7.7) Lymphocytes # (Auto) 2.6 x10^3/uL (1.0-4.8) 2.0 x10^3/uL (1.0-4.8) Monocytes # (Auto) 0.8 x10^3/uL (0.0-1.1) 0.9 x10^3/uL (0.0-1.1) Eosinophils # (Auto) 0.3 x10^3/uL (0.0-0.7) 0.2 x10^3/uL (0.0-0.7) Basophils # (Auto) 0.0 x10^3/uL (0.0-0.2) 0.0 x10^3/uL (0.0-0.2) Prothrombin Time 12.2 SEC (11.7-14.0) Prothromb Time International Ratio 0.9 (0.8-1.1) Activated Partial Thromboplast Time 25 SEC (24-38) D-Dimer (Karin) 1.85 ug/mlFEU (0.00-0.50) Sodium Level 139 mmol/L (136-145) 142 mmol/L (136-145) Potassium Level 3.7 mmol/L (3.5-5.1) 4.7 mmol/L (3.5-5.1) Chloride Level 101 mmol/L (98-107) 105 mmol/L (98-107) Carbon Dioxide Level 26 mmol/L (21-32) 27 mmol/L (21-32) Anion Gap 12 (6-14) 10 (6-14) Blood Urea Nitrogen 19 mg/dL (7-20) 18 mg/dL (7-20) Creatinine 0.9 mg/dL (0.6-1.0) 0.9 mg/dL (0.6-1.0) Estimated GFR (Cockcroft-Gault) 62.5 62.5 BUN/Creatinine Ratio 21 (6-20) Glucose Level 112 mg/dL (70-99) 121 mg/dL (70-99) Calcium Level 9.5 mg/dL (8.5-10.1) 9.2 mg/dL (8.5-10.1) Magnesium Level 1.9 mg/dL (1.8-2.4) Total Bilirubin 0.5 mg/dL (0.2-1.0) Aspartate Amino Transf (AST/SGOT) 23 U/L (15-37) Alanine Aminotransferase (ALT/SGPT) 23 U/L (14-59) Alkaline Phosphatase 47 U/L (46-116) Creatine Kinase 121 U/L (26-192) Creatine Kinase MB (Mass) 2.9 ng/mL (0.0-3.6) Creatine Kinase MB Relative Index 2.4 % (0-4) Troponin I Quantitative < 0.017 ng/mL (0.000-0.055) < 0.017 ng/mL (0.000-0.055) < 0.017 ng/mL (0.000-0.055) NN-Cdr-A-Type Natriuretic Peptide 165 pg/mL (0-124) Total Protein 7.7 g/dL (6.4-8.2) Albumin 4.1 g/dL (3.4-5.0) Albumin/Globulin Ratio 1.1 (1.0-1.7) Thyroid Stimulating Hormone (TSH) 12.445 uIU/mL (0.358-3.74) Urine Collection Type Unknown Urine Color Yellow Urine Clarity Clear Urine pH 5.5 Urine Specific [place] 1.020 Urine Protein Negative mg/dL (NEG-TRACE) Urine Glucose (UA) Negative mg/dL (NEG) Urine Ketones (Stick) Negative mg/dL (NEG) Urine Blood Trace (NEG) Urine Nitrite Negative (NEG) Urine Bilirubin Negative (NEG) Urine Urobilinogen Dipstick 0.2 mg/dL (0.2 mg/dL) Urine Leukocyte Esterase Negative (NEG) Urine RBC 1-2 /HPF (0-2) Urine WBC 1-4 /HPF (0-4) Urine Squamous Epithelial Cells Few /LPF Urine Bacteria 0 /HPF (0-FEW) Urine Hyaline Casts Few /HPF Urine Mucus Slight /LPF Urine Opiates Screen Neg (NEG) Urine Methadone Screen Neg (NEG) Urine Barbiturates Neg (NEG) Urine Phencyclidine Screen Neg (NEG) Urine Amphetamine/Methamphetamine Neg (NEG) Urine Benzodiazepines Screen Neg (NEG) Urine Cocaine Screen Neg (NEG) Urine Cannabinoids Screen Neg (NEG) Urine Ethyl Alcohol Neg (NEG) Triglycerides Level 218 mg/dL (0-150) Cholesterol Level 200 mg/dL (0-200) LDL Cholesterol, Calculated 119 mg/dL (0-100) VLDL Cholesterol, Calculated 44 mg/dL (0-40) Non-HDL Cholesterol Calculated 163 mg/dL (0-129) HDL Cholesterol 37 mg/dL (40-60) Cholesterol/HDL Ratio 5.4 Medications Current Medications Nitroglycerin (Nitrostat) 0.4 mg PRN Q5MIN PRN SL CP RATING > 1/10 Last administered on 02/15/19at 16:25; Start 02/15/19 at 15:30; Stop 02/16/19 at 15:29 Morphine Sulfate (Morphine Sulfate) 2 mg PRN Q15MIN PRN IV/SQ PAIN GREATER THAN 3/10; Start 02/15/19 at 15:30; Stop 02/16/19 at 15:29 Iohexol (Omnipaque 300 Mg/ml) 75 ml 1X ONCE IV Last administered on 02/15/19at 16:20; Start 02/15/19 at 16:15; Stop 02/15/19 at 16:16; Status DC Info (CONTRAST GIVEN -- Rx MONITORING) 1 each PRN DAILY PRN MC SEE COMMENTS; Start 02/15/19 at 16:15; Stop 02/17/19 at 16:14 Aspirin (Elroy Aspirin) 325 mg 1X ONCE PO Last administered on 02/15/19at 17:58; Start 02/15/19 at 18:00; Stop 02/15/19 at 18:01; Status DC Citalopram Hydrobromide (CeleXA) 20 mg DAILY PO Last administered on 02/16/19at 10:38; Start 02/16/19 at 09:00 Levothyroxine Sodium (Synthroid) 100 mcg DAILY06 PO ; Start 02/16/19 at 06:00; Stop 02/16/19 at 06:00; Status DC Metoprolol Tartrate (Lopressor) 25 mg DAILY PO Last administered on 02/16/19at 10:39; Start 02/16/19 at 09:00 Pantoprazole Sodium (Protonix) 40 mg DAILYAC PO Last administered on 02/16/19at 10:39; Start 02/16/19 at 07:30 Tramadol HCl (Ultram) 50 mg PRN Q6HRS PRN PO PAIN Last administered on 02/16/19at 09:04; Start 02/15/19 at 18:15 Acetaminophen/ Aspirin/Caffeine (Excedrin Migraine) 1 tab PRN Q6HRS PRN PO MIGRAINE HEADACHE; Start 02/15/19 at 19:30 Ondansetron HCl (Zofran) 4 mg PRN Q8HRS PRN IV NAUSEA/VOMITING; Start 02/15/19 at 18:15; Stop 02/16/19 at 18:14 Morphine Sulfate (Morphine Sulfate) 4 mg PRN Q2HR PRN IV PAIN; Start 02/15/19 at 18:15; Stop 02/16/19 at 18:14 Acetaminophen (Tylenol) 650 mg PRN Q4HRS PRN PO FEVER Last administered on 02/16/19at 02:00; Start 02/15/19 at 18:15; Stop 02/16/19 at 18:14 Nitroglycerin (Nitrostat) 0.4 mg PRN Q5MIN PRN SL CHEST PAIN; Start 02/15/19 at 18:15; Stop 02/16/19 at 18:14 Levothyroxine Sodium (Synthroid) 125 mcg DAILY06 PO ; Start 02/16/19 at 06:00; Stop 02/16/19 at 06:00; Status DC Levothyroxine Sodium (Synthroid) 75 mcg DAILY06 PO Last administered on 02/16/19at 09:03; Start 02/16/19 at 06:00 Lisinopril (Prinivil) 10 mg DAILY PO Last administered on 02/16/19at 10:40; Start 02/15/19 at 23:00 Active Scripts Active Reported Levothyroxine Sodium 75 Mcg Tablet 75 Mcg PO DAILY Lisinopril 10 Mg Tablet 10 Mg PO DAILY Prodrin Caplet (Isometheptene/Acetaminoph/Caff) 1 Each Tablet 1 Each PO PRN Pantoprazole Sodium 40 Mg Tablet.dr 40 Mg PO DAILY Tramadol Hcl 50 Mg Tablet 50 Mg PO Q6H PRN Metformin Hcl 500 Mg Tablet 500 Mg PO BIDWMEALS Levothyroxine Sodium 175 Mcg Tablet 1 Tab PO DAILY Vitals/I & O Vital Sign - Last 24 Hours 02/15/19 02/15/19 02/15/19 02/15/19 15:03 16:25 16:31 16:53 Temp 97.7 97.7 Pulse 80 80 80 82 Resp 20 19 B/P (MAP) 206/100 (135) 194/80 Pulse Ox 97 97 97 O2 Delivery Room Air 02/15/19 02/15/19 02/15/19 02/15/19 17:01 17:31 18:01 18:31 Pulse 84 76 82 78 Resp 19 20 Pulse Ox 97 98 97 97 02/15/19 02/15/19 02/15/19 02/15/19 19:33 20:02 20:20 22:00 Temp 98.2 98.2 Pulse 86 74 78 Resp 20 17 18 B/P (MAP) 175/99 (124) Pulse Ox 97 97 97 O2 Delivery Room Air Room Air 02/15/19 02/15/19 02/15/19 02/16/19 23:00 23:09 23:10 00:09 Temp 97.5 97.5 Pulse 70 78 Resp 18 20 20 B/P (MAP) 176/84 (114) 175/99 Pulse Ox 97 97 97 O2 Delivery Room Air Room Air Room Air 02/16/19 02/16/19 02/16/19 02/16/19 03:00 07:00 08:00 09:04 Temp 98.1 97.9 98.1 97.9 Pulse 69 63 Resp 18 14 18 B/P (MAP) 135/73 (93) 145/75 (98) Pulse Ox 96 O2 Delivery Room Air Room Air Room Air Room Air O2 Flow Rate 97.0 97.0 02/16/19 02/16/19 10:39 10:40 Pulse 63 63 B/P (MAP) 145/75 145/75 Intake and Output 02/15/19 02/15/19 02/16/19 14:59 22:59 06:59 Output Total 575 ml Balance -575 ml DANILO HAMILTON III DO February 16, 2019 10:57
[2019-02-16 11:00] VITALS: BP 168/72
--- NOTE | 2019-02-16 12:10 | PDOC2 ---
CONSULT Date of Consult Date of Consult DATE: 02/16/19 TIME: 12:06 Reason for Consult Reason for Consult: left shoulder pain Identification/Chief Complaint Chief Complaint left shoulder pain Source Source: Chart review, Patient History of Present Illness Reason for Visit: 68 year old woman who fell down the stairs. She hit her head on a steel door at the bottom, and dented the door. She has a thoracic compression fracture. She tried to keep from falling by grabbing the rail with her left hand, and may have also landed on the left shoulder. She has left shoulder pain and a bruise. Past Medical History Cardiovascular: HTN GI: GERD Heme/Onc: Anemia NOS Musculoskeletal: Osteoarthritis Endocrine: Diabetes, Hypothyroidism Past Surgical History Past Surgical History: Tonsillectomy, Hysterectomy Current Medications Current Medications Current Medications Nitroglycerin (Nitrostat) 0.4 mg PRN Q5MIN PRN SL CP RATING > 1/10 Last administered on 02/15/19at 16:25; Start 02/15/19 at 15:30; Stop 02/16/19 at 15:29 Morphine Sulfate (Morphine Sulfate) 2 mg PRN Q15MIN PRN IV/SQ PAIN GREATER THAN 3/10; Start 02/15/19 at 15:30; Stop 02/16/19 at 15:29 Iohexol (Omnipaque 300 Mg/ml) 75 ml 1X ONCE IV Last administered on 02/15/19at 16:20; Start 02/15/19 at 16:15; Stop 02/15/19 at 16:16; Status DC Info (CONTRAST GIVEN -- Rx MONITORING) 1 each PRN DAILY PRN MC SEE COMMENTS; Start 02/15/19 at 16:15; Stop 02/17/19 at 16:14 Aspirin (Elroy Aspirin) 325 mg 1X ONCE PO Last administered on 02/15/19at 17:58; Start 02/15/19 at 18:00; Stop 02/15/19 at 18:01; Status DC Citalopram Hydrobromide (CeleXA) 20 mg DAILY PO Last administered on 02/16/19at 10:38; Start 02/16/19 at 09:00 Levothyroxine Sodium (Synthroid) 100 mcg DAILY06 PO ; Start 02/16/19 at 06:00; Stop 02/16/19 at 06:00; Status DC Metoprolol Tartrate (Lopressor) 25 mg DAILY PO Last administered on 02/16/19 10:39; Start 02/16/19 at 09:00 Pantoprazole Sodium (Protonix) 40 mg DAILYAC PO Last administered on 02/16/19at 10:39; Start 02/16/19 at 07:30 Tramadol HCl (Ultram) 50 mg PRN Q6HRS PRN PO PAIN Last administered on 02/16/19 09:04; Start 02/15/19 at 18:15 Acetaminophen/ Aspirin/Caffeine (Excedrin Migraine) 1 tab PRN Q6HRS PRN PO MIGRAINE HEADACHE; Start 02/15/19 at 19:30 Ondansetron HCl (Zofran) 4 mg PRN Q8HRS PRN IV NAUSEA/VOMITING Last administered on 02/16/19at 11:26; Start 02/15/19 at 18:15; Stop 02/16/19 at 18:14 Morphine Sulfate (Morphine Sulfate) 4 mg PRN Q2HR PRN IV PAIN; Start 02/15/19 at 18:15; Stop 02/16/19 at 18:14 Acetaminophen (Tylenol) 650 mg PRN Q4HRS PRN PO FEVER Last administered on 02/16/19 02:00; Start 02/15/19 at 18:15; Stop 02/16/19 at 18:14 Nitroglycerin (Nitrostat) 0.4 mg PRN Q5MIN PRN SL CHEST PAIN; Start 02/15/19 at 18:15; Stop 02/16/19 at 18:14 Levothyroxine Sodium (Synthroid) 125 mcg DAILY06 PO ; Start 02/16/19 at 06:00; Stop 02/16/19 at 06:00; Status DC Levothyroxine Sodium (Synthroid) 75 mcg DAILY06 PO Last administered on 02/16/19at 09:03; Start 02/16/19 at 06:00 Lisinopril (Prinivil) 10 mg DAILY PO Last administered on 02/16/19at 10:40; Start 02/15/19 at 23:00 Active Scripts Active Reported Levothyroxine Sodium 75 Mcg Tablet 75 Mcg PO DAILY Lisinopril 10 Mg Tablet 10 Mg PO DAILY Prodrin Caplet (Isometheptene/Acetaminoph/Caff) 1 Each Tablet 1 Each PO PRN Pantoprazole Sodium 40 Mg Tablet.dr 40 Mg PO DAILY Tramadol Hcl 50 Mg Tablet 50 Mg PO Q6H PRN Metformin Hcl 500 Mg Tablet 500 Mg PO BIDWMEALS Levothyroxine Sodium 175 Mcg Tablet 1 Tab PO DAILY Allergies Allergies: Coded Allergies: No Known Drug Allergies (Unverified , 04/17/17) Physical Exam General: Alert, Cooperative HEENT: Other (icepack on forehead) Extremities: Normal pulses, Other (lateral ecchymosis. Able to forward flex the shoulder to 135, and abduct to 90, with seemingly intact rotator cuff although she did have pain with activation of the supraspinatus. There is slight crepitus with range of motion which may indicate a small cuff tear or bursal inflammation. She also has mild tenderness at the acromioclavicular joint but no deformity at that joint. She has lateral ecchymosis and some tenderness about the deltoid insertion region on the lateral humerus. The distal neurovascular function is normal) Skin: No breakdown, Other (lateral shoulder/humerus ecchymosis) Neuro: Sensation intact Vitals VITALS Vital Signs Date Time Temp Pulse Resp B/P (MAP) Pulse Ox O2 Delivery O2 Flow Rate FiO2 02/16/19 11:00 98.2 62 12 168/72 (104) 96 Room Air 98.2 02/16/19 08:00 97.0 Labs Labs Laboratory Tests Test 02/15/19 15:35 02/15/19 16:30 02/15/19 20:45 02/16/19 05:40 White Blood Count 12.8 x10^3/uL (4.0-11.0) 9.2 x10^3/uL (4.0-11.0) Red Blood Count 4.37 x10^6/uL (3.50-5.40) 4.14 x10^6/uL (3.50-5.40) Hemoglobin 14.2 g/dL (12.0-15.5) 13.7 g/dL (12.0-15.5) Hematocrit 41.7 % (36.0-47.0) 39.4 % (36.0-47.0) Mean Corpuscular Volume 95 fL (79-100) 95 fL (79-100) Mean Corpuscular Hemoglobin 32 pg (25-35) 33 pg (25-35) Mean Corpuscular Hemoglobin Concent 34 g/dL (31-37) 35 g/dL (31-37) Red Cell Distribution Width 13.2 % (11.5-14.5) 13.2 % (11.5-14.5) Platelet Count 279 x10^3/uL (140-400) 267 x10^3/uL (140-400) Neutrophils (%) (Auto) 71 % (31-73) 66 % (31-73) Lymphocytes (%) (Auto) 20 % (24-48) 22 % (24-48) Monocytes (%) (Auto) 7 % (0-9) 10 % (0-9) Eosinophils (%) (Auto) 2 % (0-3) 2 % (0-3) Basophils (%) (Auto) 0 % (0-3) 0 % (0-3) Neutrophils # (Auto) 9.0 x10^3uL (1.8-7.7) 6.1 x10^3uL (1.8-7.7) Lymphocytes # (Auto) 2.6 x10^3/uL (1.0-4.8) 2.0 x10^3/uL (1.0-4.8) Monocytes # (Auto) 0.8 x10^3/uL (0.0-1.1) 0.9 x10^3/uL (0.0-1.1) Eosinophils # (Auto) 0.3 x10^3/uL (0.0-0.7) 0.2 x10^3/uL (0.0-0.7) Basophils # (Auto) 0.0 x10^3/uL (0.0-0.2) 0.0 x10^3/uL (0.0-0.2) Prothrombin Time 12.2 SEC (11.7-14.0) Prothromb Time International Ratio 0.9 (0.8-1.1) Activated Partial Thromboplast Time 25 SEC (24-38) D-Dimer (Karin) 1.85 ug/mlFEU (0.00-0.50) Sodium Level 139 mmol/L (136-145) 142 mmol/L (136-145) Potassium Level 3.7 mmol/L (3.5-5.1) 4.7 mmol/L (3.5-5.1) Chloride Level 101 mmol/L (98-107) 105 mmol/L (98-107) Carbon Dioxide Level 26 mmol/L (21-32) 27 mmol/L (21-32) Anion Gap 12 (6-14) 10 (6-14) Blood Urea Nitrogen 19 mg/dL (7-20) 18 mg/dL (7-20) Creatinine 0.9 mg/dL (0.6-1.0) 0.9 mg/dL (0.6-1.0) Estimated GFR (Cockcroft-Gault) 62.5 62.5 BUN/Creatinine Ratio 21 (6-20) Glucose Level 112 mg/dL (70-99) 121 mg/dL (70-99) Calcium Level 9.5 mg/dL (8.5-10.1) 9.2 mg/dL (8.5-10.1) Magnesium Level 1.9 mg/dL (1.8-2.4) Total Bilirubin 0.5 mg/dL (0.2-1.0) Aspartate Amino Transf (AST/SGOT) 23 U/L (15-37) Alanine Aminotransferase (ALT/SGPT) 23 U/L (14-59) Alkaline Phosphatase 47 U/L (46-116) Creatine Kinase 121 U/L (26-192) Creatine Kinase MB (Mass) 2.9 ng/mL (0.0-3.6) Creatine Kinase MB Relative Index 2.4 % (0-4) Troponin I Quantitative < 0.017 ng/mL (0.000-0.055) < 0.017 ng/mL (0.000-0.055) < 0.017 ng/mL (0.000-0.055) LZ-Jik-Z-Type Natriuretic Peptide 165 pg/mL (0-124) Total Protein 7.7 g/dL (6.4-8.2) Albumin 4.1 g/dL (3.4-5.0) Albumin/Globulin Ratio 1.1 (1.0-1.7) Thyroid Stimulating Hormone (TSH) 12.445 uIU/mL (0.358-3.74) Urine Collection Type Unknown Urine Color Yellow Urine Clarity Clear Urine pH 5.5 Urine Specific [place] 1.020 Urine Protein Negative mg/dL (NEG-TRACE) Urine Glucose (UA) Negative mg/dL (NEG) Urine Ketones (Stick) Negative mg/dL (NEG) Urine Blood Trace (NEG) Urine Nitrite Negative (NEG) Urine Bilirubin Negative (NEG) Urine Urobilinogen Dipstick 0.2 mg/dL (0.2 mg/dL) Urine Leukocyte Esterase Negative (NEG) Urine RBC 1-2 /HPF (0-2) Urine WBC 1-4 /HPF (0-4) Urine Squamous Epithelial Cells Few /LPF Urine Bacteria 0 /HPF (0-FEW) Urine Hyaline Casts Few /HPF Urine Mucus Slight /LPF Urine Opiates Screen Neg (NEG) Urine Methadone Screen Neg (NEG) Urine Barbiturates Neg (NEG) Urine Phencyclidine Screen Neg (NEG) Urine Amphetamine/Methamphetamine Neg (NEG) Urine Benzodiazepines Screen Neg (NEG) Urine Cocaine Screen Neg (NEG) Urine Cannabinoids Screen Neg (NEG) Urine Ethyl Alcohol Neg (NEG) Triglycerides Level 218 mg/dL (0-150) Cholesterol Level 200 mg/dL (0-200) LDL Cholesterol, Calculated 119 mg/dL (0-100) VLDL Cholesterol, Calculated 44 mg/dL (0-40) Non-HDL Cholesterol Calculated 163 mg/dL (0-129) HDL Cholesterol 37 mg/dL (40-60) Cholesterol/HDL Ratio 5.4 Laboratory Tests Test 02/15/19 15:35 02/15/19 16:30 02/15/19 20:45 02/16/19 05:40 White Blood Count 12.8 x10^3/uL (4.0-11.0) 9.2 x10^3/uL (4.0-11.0) Red Blood Count 4.37 x10^6/uL (3.50-5.40) 4.14 x10^6/uL (3.50-5.40) Hemoglobin 14.2 g/dL (12.0-15.5) 13.7 g/dL (12.0-15.5) Hematocrit 41.7 % (36.0-47.0) 39.4 % (36.0-47.0) Mean Corpuscular Volume 95 fL (79-100) 95 fL (79-100) Mean Corpuscular Hemoglobin 32 pg (25-35) 33 pg (25-35) Mean Corpuscular Hemoglobin Concent 34 g/dL (31-37) 35 g/dL (31-37) Red Cell Distribution Width 13.2 % (11.5-14.5) 13.2 % (11.5-14.5) Platelet Count 279 x10^3/uL (140-400) 267 x10^3/uL (140-400) Neutrophils (%) (Auto) 71 % (31-73) 66 % (31-73) Lymphocytes (%) (Auto) 20 % (24-48) 22 % (24-48) Monocytes (%) (Auto) 7 % (0-9) 10 % (0-9) Eosinophils (%) (Auto) 2 % (0-3) 2 % (0-3) Basophils (%) (Auto) 0 % (0-3) 0 % (0-3) Neutrophils # (Auto) 9.0 x10^3uL (1.8-7.7) 6.1 x10^3uL (1.8-7.7) Lymphocytes # (Auto) 2.6 x10^3/uL (1.0-4.8) 2.0 x10^3/uL (1.0-4.8) Monocytes # (Auto) 0.8 x10^3/uL (0.0-1.1) 0.9 x10^3/uL (0.0-1.1) Eosinophils # (Auto) 0.3 x10^3/uL (0.0-0.7) 0.2 x10^3/uL (0.0-0.7) Basophils # (Auto) 0.0 x10^3/uL (0.0-0.2) 0.0 x10^3/uL (0.0-0.2) Prothrombin Time 12.2 SEC (11.7-14.0) Prothromb Time International Ratio 0.9 (0.8-1.1) Activated Partial Thromboplast Time 25 SEC (24-38) D-Dimer (Karin) 1.85 ug/mlFEU (0.00-0.50) Sodium Level 139 mmol/L (136-145) 142 mmol/L (136-145) Potassium Level 3.7 mmol/L (3.5-5.1) 4.7 mmol/L (3.5-5.1) Chloride Level 101 mmol/L (98-107) 105 mmol/L (98-107) Carbon Dioxide Level 26 mmol/L (21-32) 27 mmol/L (21-32) Anion Gap 12 (6-14) 10 (6-14) Blood Urea Nitrogen 19 mg/dL (7-20) 18 mg/dL (7-20) Creatinine 0.9 mg/dL (0.6-1.0) 0.9 mg/dL (0.6-1.0) Estimated GFR (Cockcroft-Gault) 62.5 62.5 BUN/Creatinine Ratio 21 (6-20) Glucose Level 112 mg/dL (70-99) 121 mg/dL (70-99) Calcium Level 9.5 mg/dL (8.5-10.1) 9.2 mg/dL (8.5-10.1) Magnesium Level 1.9 mg/dL (1.8-2.4) Total Bilirubin 0.5 mg/dL (0.2-1.0) Aspartate Amino Transf (AST/SGOT) 23 U/L (15-37) Alanine Aminotransferase (ALT/SGPT) 23 U/L (14-59) Alkaline Phosphatase 47 U/L (46-116) Creatine Kinase 121 U/L (26-192) Creatine Kinase MB (Mass) 2.9 ng/mL (0.0-3.6) Creatine Kinase MB Relative Index 2.4 % (0-4) Troponin I Quantitative < 0.017 ng/mL (0.000-0.055) < 0.017 ng/mL (0.000-0.055) < 0.017 ng/mL (0.000-0.055) TZ-Zya-F-Type Natriuretic Peptide 165 pg/mL (0-124) Total Protein 7.7 g/dL (6.4-8.2) Albumin 4.1 g/dL (3.4-5.0) Albumin/Globulin Ratio 1.1 (1.0-1.7) Thyroid Stimulating Hormone (TSH) 12.445 uIU/mL (0.358-3.74) Urine Collection Type Unknown Urine Color Yellow Urine Clarity Clear Urine pH 5.5 Urine Specific [place] 1.020 Urine Protein Negative mg/dL (NEG-TRACE) Urine Glucose (UA) Negative mg/dL (NEG) Urine Ketones (Stick) Negative mg/dL (NEG) Urine Blood Trace (NEG) Urine Nitrite Negative (NEG) Urine Bilirubin Negative (NEG) Urine Urobilinogen Dipstick 0.2 mg/dL (0.2 mg/dL) Urine Leukocyte Esterase Negative (NEG) Urine RBC 1-2 /HPF (0-2) Urine WBC 1-4 /HPF (0-4) Urine Squamous Epithelial Cells Few /LPF Urine Bacteria 0 /HPF (0-FEW) Urine Hyaline Casts Few /HPF Urine Mucus Slight /LPF Urine Opiates Screen Neg (NEG) Urine Methadone Screen Neg (NEG) Urine Barbiturates Neg (NEG) Urine Phencyclidine Screen Neg (NEG) Urine Amphetamine/Methamphetamine Neg (NEG) Urine Benzodiazepines Screen Neg (NEG) Urine Cocaine Screen Neg (NEG) Urine Cannabinoids Screen Neg (NEG) Urine Ethyl Alcohol Neg (NEG) Triglycerides Level 218 mg/dL (0-150) Cholesterol Level 200 mg/dL (0-200) LDL Cholesterol, Calculated 119 mg/dL (0-100) VLDL Cholesterol, Calculated 44 mg/dL (0-40) Non-HDL Cholesterol Calculated 163 mg/dL (0-129) HDL Cholesterol 37 mg/dL (40-60) Cholesterol/HDL Ratio 5.4 Images Images Images independently reviewed, CT scan series 2 image 5 shows intact scapula and humeral head without apparent dislocation. [facility] [address] [place] [address] IMAGING REPORT Signed PATIENT: SAMIR ANAND ACCOUNT: [id number] : 1950 LOCATION: ER AGE: 68 SEX: F EXAM STATUS: REG ER ORD. PHYSICIAN: ULICES WHITEHEAD DO REASON: chest/back pain s/p fall PROCEDURE: CT CHEST ABD PELVIS W/CONTRAST CT LUMBAR SPINE RECONSTRUCTION, CT CHEST ABD PELVIS W/CONTRAST Indication: Chest and back pain after a fall. Exposure: One or more of the following individualized dose reduction techniques were utilized for this examination: 1. Automated exposure control 2. Adjustment of the mA and/or kV according to patient size 3. Use of iterative reconstruction technique. Technique: Intravenous contrast was given. No oral contrast per request. Comparison: No prior studies are currently available. CHEST: Thoracic aorta demonstrates no evidence of aneurysm or dissection, mildly tortuous. Main pulmonary artery is grossly patent. No pericardial effusion. No pleural effusion. No significant lymph node enlargement. Calcified nodule right lung base, compatible with a granuloma. No evidence of lung consolidation. No evidence of pneumothorax. Trachea and mainstem bronchi are grossly patent. No evidence of a displaced fracture although a specific area of pain or impact is not known. There is a compression fracture of the T11 vertebral body, will be more fully evaluated in the separate thoracic spine CT which is reported separately. IMPRESSION: No acute findings in the chest. T11 vertebral body fracture, reported separately. Abdomen pelvis: Liver and spleen appear unremarkable. No perihepatic or perisplenic fluid or stranding is seen. No peripancreatic fluid or stranding. No adrenal mass. Kidneys demonstrate symmetric enhancement without hydronephrosis or abnormality. No calcified gallstone. Aorta mildly calcified and tortuous, no aneurysm or para-aortic hematoma. No significant lymph node enlargement. Minimal stranding within the central mesenteric fat. Small hiatal hernia. No significant small bowel distention. No evidence of acute colitis. The appendix is not well seen. No evidence of ascites or pneumoperitoneum. No evidence of an acute fracture of the skeletal pelvis. IMPRESSION: No acute findings in the abdomen or pelvis. Lumbar spine: The lumbar vertebral body height is maintained. Alignment is intact. No evidence of acute fracture or aggressive bone destruction. Sacroiliac joints appear intact. There is degenerative multilevel spondylosis. IMPRESSION: No evidence of acute fracture or subluxation of the lumbar spine. See separate thoracic spine CT report. Electronically signed by: Ulices King MD (02/15/2019 4:47 PM) [facility] DICTATED and SIGNED BY: ULICES KING MD DATE: 02/15/19 1647 [facility] [address] [place] [address] IMAGING REPORT Signed PATIENT: SAMIR ANAND ACCOUNT: [id number] : 1950 LOCATION: ER AGE: 68 SEX: F EXAM STATUS: REG ER ORD. PHYSICIAN: LAVELL BONILLA APRN REASON: FALL DOWN STAIRS PAIN PROCEDURE: CT THORACIC SPINE RECONSTRUCT CT scan of the thoracic spine without contrast 02/15/2019 CLINICAL HISTORY: Fall down stairs. Mid back pain TECHNIQUE: 3 mm reconstructed sagittal, axial and coronal images of the thoracic spine were obtained from the data set generated during the patient's CT scan of the chest abdomen and pelvis. One or more of the following individualized dose reduction techniques were utilized for this study: 1. Automated exposure control. 2. Adjustment of the mA and/or kV according to patient size. 3. Use of iterative reconstruction technique. , FINDINGS: Sagittal and coronal reconstructed images demonstrate minimal S-shaped curvature of the thoracolumbar spine. Degenerative changes are seen throughout the thoracic disc spaces consisting of vertebral endplate sclerosis and minimal to mild anterior vertebral body osteophyte formation. A relatively acute appearing compression fracture of the T11 vertebral body is seen. This vertebral body has lost approximately 10 percent of its normal height. No retropulsion of bone fragments into the central spinal canal is seen. No additional acute fracture of the thoracic vertebrae is noted. No subluxation is seen. IMPRESSION: Relatively acute compression fracture of the T11 vertebral body is seen. No retropulsion of bone fragments into the central spinal canal is noted. Electronically signed by: Brad Branch MD (02/15/2019 4:36 PM) [facility] DICTATED and SIGNED BY: BRAD BRANCH MD DATE: 02/15/19 1636 Assessment/Plan Assessment/Plan I believe she just has a shoulder contusion. I will order some dedicated shoulder x-rays. She can use the arm without restriction and I instructed her on some passive and active assisted range of motion. I would like to see her back in the office in about a month, and reassess. If she has weakness at that point I would consider an MRI but she does not need one currently. BRAD CRABTREE MD February 16, 2019 12:10
--- NOTE | 2019-02-16 12:27 | NUR ---
SS following for discharge planning. SS reviewed pt chart. Pt is from home with spouse and is currently on room air. PT/OT ordered. SS will await PT/OT evaluations and recommendations and will proceed accordingly. SS will continue to follow for discharge planning.
--- NOTE | 2019-02-16 13:09 | PDOC ---
Provider Note Provider Note Full consult to follow. L shoulder bruising after fall down stairs. Patient reports occasional popping left shoulder. No gross weakness. CT shows a few slices of scapula and humerus, but will order dedicated shoulder films. She may use the arm as tolerated. BRAD CRABTREE MD February 16, 2019 13:09
[2019-02-16] MEDS ORDERED: ONDANSETRON ODT 4 MG TAB.RAPDIS. PO PRN (13:45)
--- NOTE | 2019-02-16 14:34 | CARD ---
MR#: [id number] Date of Study: 02/16/2019 Ordering Physician: BAL TMZ, Referring Physician: Cindi SOTO: Irais Han ENZO APPROVED REPORT EXAM: Two-dimensional and M-mode echocardiogram with Doppler and color Doppler. Other Information Quality : Technically LimitedHR: 76bpm Rhythm : NSRTechnically limited study due to body habitus. INDICATION Abnormal ECG 2D DIMENSIONS RVDd3.0 (2.9-3.5cm)Left Atrium(2D)3.3 (1.6-4.0cm) IVSd1.2 (0.7-1.1cm)Aortic Root(2D)2.6 (2.0-3.7cm) LVDd3.9 (3.9-5.9cm)LVOT Diameter1.9 (1.8-2.4cm) PWd1.0 (0.7-1.1cm)LVDs2.8 (2.5-4.0cm) FS (%) 26.8 %SV34.5 ml Aortic Valve AoV Peak Francisco.123.4cm/sAoV VTI29.9cm AO Peak GR.6.1mmHgLVOT Peak Francisco.100.6cm/s AO Mean GR.3mmHgAVA (VMAX)2.21cm2 DON (VTI)2.20cm2 Mitral Valve MV E Ccddlrbl172.7cm/sMV E Peak Gr.12mmHg MV DECEL [id number] A Xuyeohcf501.0cm/s MV E Mean Gr.4mmHgE/A Ratio1.0 MV A [id number] Pulmonary Valve PV Peak Leccpirj216.4cm/s Tricuspid Valve TR P. Aalunwkp325su/sRAP [id number] TR Peak Gr.79dqAtMCOQ13vuSw LEFT VENTRICLE The left ventricle is normal size. There is normal left ventricular wall thickness. The left ventricu lar systolic function is normal and the ejection fraction is within normal range. The Ejection Fracti on is 55-60%. There is normal LV segmental wall motion. Transmitral Doppler flow pattern is Grade I-a bnormal relaxation pattern. RIGHT VENTRICLE The right ventricle is normal size. There is normal right ventricular wall thickness. The right ventr icular systolic function is normal. ATRIA The left atrium size is normal. The right atrium size is normal. The interatrial septum is intact wit h no evidence for an atrial septal defect or patent foramen ovale as noted on 2-D or Doppler imaging. AORTIC VALVE The aortic valve is not well visualized. The aortic valve is probably trileaflet. Doppler and Color F low revealed no significant aortic regurgitation. There is no significant aortic valvular stenosis. MITRAL VALVE The mitral valve is normal in structure and function. There is no evidence of mitral valve prolapse. There is no mitral valve stenosis. Doppler and Color Flow revealed no mitral valve regurgitation note d. TRICUSPID VALVE The tricuspid valve is normal in structure and function. Doppler and Color Flow revealed mild tricusp id regurgitation. The PA pressure was estimated at 38 mmHg. There is no tricuspid valve prolapse or v egetation. There is no tricuspid valve stenosis. PULMONIC VALVE The pulmonic valve is not well visualized. GREAT VESSELS The aortic root is normal in size. The ascending aorta is normal in size. The IVC is normal in size a nd collapses >50% with inspiration. PERICARDIAL EFFUSION There is no evidence of significant pericardial effusion. Critical Notification Critical Value: No <Conclusion> The left ventricle is normal size. The left ventricular systolic function is normal and the ejection fraction is within normal range. The Ejection Fraction is 55-60%. There is no significant aortic valvular stenosis. Doppler and Color Flow revealed no significant aortic regurgitation. Doppler and Color Flow revealed no mitral valve regurgitation noted. Doppler and Color Flow revealed mild tricuspid regurgitation. The PA pressure was estimated at 38 mmHg. Signed by : Mark Lee MD Electronically Approved : 02/16/2019 14:33:59
--- NOTE | 2019-02-16 14:35 | RAD ---
3 views of the left shoulder dated 02/16/2019. No comparison available. Clinical data indication: Pain after fall. FINDINGS: 3 views left shoulder show normal bony alignment. No displaced fracture. No acute osseous or articular abnormality. Mild hypertrophic change of the AC joint. IMPRESSION: No acute findings. Electronically signed by: Ulices Curran MD (02/16/2019 2:33 PM) [id number]
[2019-02-16 15:00] VITALS: BP 157/86
--- NOTE | 2019-02-16 15:21 | PDOC ---
PULMONARY PROGRESS NOTES Vitals Vital Signs Date Time Temp Pulse Resp B/P (MAP) Pulse Ox O2 Delivery O2 Flow Rate FiO2 02/16/19 11:00 98.2 62 12 168/72 (104) 96 Room Air 98.2 02/16/19 08:00 97.0 Labs Laboratory Tests Test 02/15/19 15:35 02/15/19 16:30 02/15/19 20:45 02/16/19 05:40 White Blood Count 12.8 x10^3/uL (4.0-11.0) 9.2 x10^3/uL (4.0-11.0) Red Blood Count 4.37 x10^6/uL (3.50-5.40) 4.14 x10^6/uL (3.50-5.40) Hemoglobin 14.2 g/dL (12.0-15.5) 13.7 g/dL (12.0-15.5) Hematocrit 41.7 % (36.0-47.0) 39.4 % (36.0-47.0) Mean Corpuscular Volume 95 fL (79-100) 95 fL (79-100) Mean Corpuscular Hemoglobin 32 pg (25-35) 33 pg (25-35) Mean Corpuscular Hemoglobin Concent 34 g/dL (31-37) 35 g/dL (31-37) Red Cell Distribution Width 13.2 % (11.5-14.5) 13.2 % (11.5-14.5) Platelet Count 279 x10^3/uL (140-400) 267 x10^3/uL (140-400) Neutrophils (%) (Auto) 71 % (31-73) 66 % (31-73) Lymphocytes (%) (Auto) 20 % (24-48) 22 % (24-48) Monocytes (%) (Auto) 7 % (0-9) 10 % (0-9) Eosinophils (%) (Auto) 2 % (0-3) 2 % (0-3) Basophils (%) (Auto) 0 % (0-3) 0 % (0-3) Neutrophils # (Auto) 9.0 x10^3uL (1.8-7.7) 6.1 x10^3uL (1.8-7.7) Lymphocytes # (Auto) 2.6 x10^3/uL (1.0-4.8) 2.0 x10^3/uL (1.0-4.8) Monocytes # (Auto) 0.8 x10^3/uL (0.0-1.1) 0.9 x10^3/uL (0.0-1.1) Eosinophils # (Auto) 0.3 x10^3/uL (0.0-0.7) 0.2 x10^3/uL (0.0-0.7) Basophils # (Auto) 0.0 x10^3/uL (0.0-0.2) 0.0 x10^3/uL (0.0-0.2) Prothrombin Time 12.2 SEC (11.7-14.0) Prothromb Time International Ratio 0.9 (0.8-1.1) Activated Partial Thromboplast Time 25 SEC (24-38) D-Dimer (Karin) 1.85 ug/mlFEU (0.00-0.50) Sodium Level 139 mmol/L (136-145) 142 mmol/L (136-145) Potassium Level 3.7 mmol/L (3.5-5.1) 4.7 mmol/L (3.5-5.1) Chloride Level 101 mmol/L (98-107) 105 mmol/L (98-107) Carbon Dioxide Level 26 mmol/L (21-32) 27 mmol/L (21-32) Anion Gap 12 (6-14) 10 (6-14) Blood Urea Nitrogen 19 mg/dL (7-20) 18 mg/dL (7-20) Creatinine 0.9 mg/dL (0.6-1.0) 0.9 mg/dL (0.6-1.0) Estimated GFR (Cockcroft-Gault) 62.5 62.5 BUN/Creatinine Ratio 21 (6-20) Glucose Level 112 mg/dL (70-99) 121 mg/dL (70-99) Calcium Level 9.5 mg/dL (8.5-10.1) 9.2 mg/dL (8.5-10.1) Magnesium Level 1.9 mg/dL (1.8-2.4) Total Bilirubin 0.5 mg/dL (0.2-1.0) Aspartate Amino Transf (AST/SGOT) 23 U/L (15-37) Alanine Aminotransferase (ALT/SGPT) 23 U/L (14-59) Alkaline Phosphatase 47 U/L (46-116) Creatine Kinase 121 U/L (26-192) Creatine Kinase MB (Mass) 2.9 ng/mL (0.0-3.6) Creatine Kinase MB Relative Index 2.4 % (0-4) Troponin I Quantitative < 0.017 ng/mL (0.000-0.055) < 0.017 ng/mL (0.000-0.055) < 0.017 ng/mL (0.000-0.055) XB-Syo-L-Type Natriuretic Peptide 165 pg/mL (0-124) Total Protein 7.7 g/dL (6.4-8.2) Albumin 4.1 g/dL (3.4-5.0) Albumin/Globulin Ratio 1.1 (1.0-1.7) Thyroid Stimulating Hormone (TSH) 12.445 uIU/mL (0.358-3.74) Urine Collection Type Unknown Urine Color Yellow Urine Clarity Clear Urine pH 5.5 Urine Specific Sherrill 1.020 Urine Protein Negative mg/dL (NEG-TRACE) Urine Glucose (UA) Negative mg/dL (NEG) Urine Ketones (Stick) Negative mg/dL (NEG) Urine Blood Trace (NEG) Urine Nitrite Negative (NEG) Urine Bilirubin Negative (NEG) Urine Urobilinogen Dipstick 0.2 mg/dL (0.2 mg/dL) Urine Leukocyte Esterase Negative (NEG) Urine RBC 1-2 /HPF (0-2) Urine WBC 1-4 /HPF (0-4) Urine Squamous Epithelial Cells Few /LPF Urine Bacteria 0 /HPF (0-FEW) Urine Hyaline Casts Few /HPF Urine Mucus Slight /LPF Urine Opiates Screen Neg (NEG) Urine Methadone Screen Neg (NEG) Urine Barbiturates Neg (NEG) Urine Phencyclidine Screen Neg (NEG) Urine Amphetamine/Methamphetamine Neg (NEG) Urine Benzodiazepines Screen Neg (NEG) Urine Cocaine Screen Neg (NEG) Urine Cannabinoids Screen Neg (NEG) Urine Ethyl Alcohol Neg (NEG) Triglycerides Level 218 mg/dL (0-150) Cholesterol Level 200 mg/dL (0-200) LDL Cholesterol, Calculated 119 mg/dL (0-100) VLDL Cholesterol, Calculated 44 mg/dL (0-40) Non-HDL Cholesterol Calculated 163 mg/dL (0-129) HDL Cholesterol 37 mg/dL (40-60) Cholesterol/HDL Ratio 5.4 Laboratory Tests Test 02/15/19 15:35 02/15/19 16:30 02/15/19 20:45 02/16/19 05:40 White Blood Count 12.8 x10^3/uL (4.0-11.0) 9.2 x10^3/uL (4.0-11.0) Red Blood Count 4.37 x10^6/uL (3.50-5.40) 4.14 x10^6/uL (3.50-5.40) Hemoglobin 14.2 g/dL (12.0-15.5) 13.7 g/dL (12.0-15.5) Hematocrit 41.7 % (36.0-47.0) 39.4 % (36.0-47.0) Mean Corpuscular Volume 95 fL (79-100) 95 fL (79-100) Mean Corpuscular Hemoglobin 32 pg (25-35) 33 pg (25-35) Mean Corpuscular Hemoglobin Concent 34 g/dL (31-37) 35 g/dL (31-37) Red Cell Distribution Width 13.2 % (11.5-14.5) 13.2 % (11.5-14.5) Platelet Count 279 x10^3/uL (140-400) 267 x10^3/uL (140-400) Neutrophils (%) (Auto) 71 % (31-73) 66 % (31-73) Lymphocytes (%) (Auto) 20 % (24-48) 22 % (24-48) Monocytes (%) (Auto) 7 % (0-9) 10 % (0-9) Eosinophils (%) (Auto) 2 % (0-3) 2 % (0-3) Basophils (%) (Auto) 0 % (0-3) 0 % (0-3) Neutrophils # (Auto) 9.0 x10^3uL (1.8-7.7) 6.1 x10^3uL (1.8-7.7) Lymphocytes # (Auto) 2.6 x10^3/uL (1.0-4.8) 2.0 x10^3/uL (1.0-4.8) Monocytes # (Auto) 0.8 x10^3/uL (0.0-1.1) 0.9 x10^3/uL (0.0-1.1) Eosinophils # (Auto) 0.3 x10^3/uL (0.0-0.7) 0.2 x10^3/uL (0.0-0.7) Basophils # (Auto) 0.0 x10^3/uL (0.0-0.2) 0.0 x10^3/uL (0.0-0.2) Prothrombin Time 12.2 SEC (11.7-14.0) Prothromb Time International Ratio 0.9 (0.8-1.1) Activated Partial Thromboplast Time 25 SEC (24-38) D-Dimer (Karin) 1.85 ug/mlFEU (0.00-0.50) Sodium Level 139 mmol/L (136-145) 142 mmol/L (136-145) Potassium Level 3.7 mmol/L (3.5-5.1) 4.7 mmol/L (3.5-5.1) Chloride Level 101 mmol/L (98-107) 105 mmol/L (98-107) Carbon Dioxide Level 26 mmol/L (21-32) 27 mmol/L (21-32) Anion Gap 12 (6-14) 10 (6-14) Blood Urea Nitrogen 19 mg/dL (7-20) 18 mg/dL (7-20) Creatinine 0.9 mg/dL (0.6-1.0) 0.9 mg/dL (0.6-1.0) Estimated GFR (Cockcroft-Gault) 62.5 62.5 BUN/Creatinine Ratio 21 (6-20) Glucose Level 112 mg/dL (70-99) 121 mg/dL (70-99) Calcium Level 9.5 mg/dL (8.5-10.1) 9.2 mg/dL (8.5-10.1) Magnesium Level 1.9 mg/dL (1.8-2.4) Total Bilirubin 0.5 mg/dL (0.2-1.0) Aspartate Amino Transf (AST/SGOT) 23 U/L (15-37) Alanine Aminotransferase (ALT/SGPT) 23 U/L (14-59) Alkaline Phosphatase 47 U/L (46-116) Creatine Kinase 121 U/L (26-192) Creatine Kinase MB (Mass) 2.9 ng/mL (0.0-3.6) Creatine Kinase MB Relative Index 2.4 % (0-4) Troponin I Quantitative < 0.017 ng/mL (0.000-0.055) < 0.017 ng/mL (0.000-0.055) < 0.017 ng/mL (0.000-0.055) CP-Mcf-E-Type Natriuretic Peptide 165 pg/mL (0-124) Total Protein 7.7 g/dL (6.4-8.2) Albumin 4.1 g/dL (3.4-5.0) Albumin/Globulin Ratio 1.1 (1.0-1.7) Thyroid Stimulating Hormone (TSH) 12.445 uIU/mL (0.358-3.74) Urine Collection Type Unknown Urine Color Yellow Urine Clarity Clear Urine pH 5.5 Urine Specific Sherrill 1.020 Urine Protein Negative mg/dL (NEG-TRACE) Urine Glucose (UA) Negative mg/dL (NEG) Urine Ketones (Stick) Negative mg/dL (NEG) Urine Blood Trace (NEG) Urine Nitrite Negative (NEG) Urine Bilirubin Negative (NEG) Urine Urobilinogen Dipstick 0.2 mg/dL (0.2 mg/dL) Urine Leukocyte Esterase Negative (NEG) Urine RBC 1-2 /HPF (0-2) Urine WBC 1-4 /HPF (0-4) Urine Squamous Epithelial Cells Few /LPF Urine Bacteria 0 /HPF (0-FEW) Urine Hyaline Casts Few /HPF Urine Mucus Slight /LPF Urine Opiates Screen Neg (NEG) Urine Methadone Screen Neg (NEG) Urine Barbiturates Neg (NEG) Urine Phencyclidine Screen Neg (NEG) Urine Amphetamine/Methamphetamine Neg (NEG) Urine Benzodiazepines Screen Neg (NEG) Urine Cocaine Screen Neg (NEG) Urine Cannabinoids Screen Neg (NEG) Urine Ethyl Alcohol Neg (NEG) Triglycerides Level 218 mg/dL (0-150) Cholesterol Level 200 mg/dL (0-200) LDL Cholesterol, Calculated 119 mg/dL (0-100) VLDL Cholesterol, Calculated 44 mg/dL (0-40) Non-HDL Cholesterol Calculated 163 mg/dL (0-129) HDL Cholesterol 37 mg/dL (40-60) Cholesterol/HDL Ratio 5.4 Medications Active Scripts Medications Dose Route/Sig Max Daily Dose Days Date Category Levothyroxine Sodium 75 Mcg Tablet 75 Mcg PO DAILY 02/15/19 Reported Lisinopril 10 Mg Tablet 10 Mg PO DAILY 02/15/19 Reported Prodrin Caplet (Isometheptene/Acetaminoph/Caff) 1 Each Tablet 1 Each PO PRN 04/17/17 Reported Pantoprazole Sodium 40 Mg Tablet.dr 40 Mg PO DAILY 04/17/17 Reported Tramadol Hcl 50 Mg Tablet 50 Mg PO Q6H PRN 04/17/17 Reported Metformin Hcl 500 Mg Tablet 500 Mg PO BIDWMEALS 04/17/17 Reported Levothyroxine Sodium 175 Mcg Tablet 1 Tab PO DAILY 04/17/17 Reported Impression . FULL NOTE DICTATED D DIMER NON SPECIFIC NOT FURTHER WORK UP NEEDED WILL S/O THANKS VALENTINA SINGH MD February 16, 2019 15:21
[2019-02-16] MEDS ORDERED: LISINOPRIL 10 MG TABLET PO ONE (15:30)
[2019-02-16] MEDS ORDERED: hydrALAZINE 20 MG/ML VIAL. IVP PRN ×2 (15:30)
[2019-02-16] MEDS ORDERED: PROCHLORPERAZINE 25 MG SUPP.RECT. PR PRN (16:00)
[2019-02-16] MEDS ORDERED: tiZANidine 4 MG TABLET. PO PRN (16:00)
[2019-02-16] MEDS: PANTOPRAZOLE 40 MG TABLET.DR. PO SCH (16:18)
[2019-02-16] MEDS: predniSONE 10 MG TABLET PO SCH (16:19)
[2019-02-16] MEDS: HYDROcodone/APAP 7.5/325MG 1 TAB TABLET PO PRN (18:28)
[2019-02-16 19:25] VITALS: BP 160/75
[2019-02-16] MEDS ORDERED: CYCLOBENZAPRINE 10 MG TABLET. PO PRN (19:30)
[2019-02-16] MEDS ORDERED: ATORVASTATIN CALCIUM 40 MG TABLET. PO SCH (21:00)
[2019-02-16 23:05] VITALS: BP 168/87
--- NOTE | 2019-02-17 02:36 | CONS ---
DATE OF CONSULTATION: 02/16/2019 ATTENDING PHYSICIAN: Dr. Ayanna Washington. REASON FOR CONSULTATION: The patient seen in pulmonary consultation at the request of Dr. Washington for abnormal D-dimer. HISTORY OF PRESENT ILLNESS: The patient is a 68-year-old that presented to the Emergency Room after suffering a fall. She has a history of hypertension and hypothyroidism. The patient was apparently on some flat shoes, was walking down the steps and tripped. She fell on her back, hitting her right forehead and door knob. She did not lose any consciousness. The patient denies any acute onset of shortness of air with a pleuritic type of discomfort. There is no prior history of DVT or pulmonary embolism. Part of her workup for the admission included a D-dimer, which was positive. I was asked to see her in consultation. PAST MEDICAL HISTORY: Hypothyroidism. PAST SURGICAL HISTORY: Hysterectomy, oophorectomy. FAMILY HISTORY: Coronary artery disease. SOCIAL HISTORY: She has never smoked. REVIEW OF SYSTEMS: As indicated above, otherwise, a 10-point system was reviewed and negative. CONSTITUTIONAL: No fever or chills. EYES: No change in visual acuity. HENT: No nasal congestion, no sore throat. PULMONARY: As indicated above. CARDIOVASCULAR: No chest pain or pressure. GASTROINTESTINAL: No nausea, vomiting, diarrhea. GENITOURINARY: No dysuria or frequency. MUSCULOSKELETAL: No localized muscle aches or joint pains. SKIN: No new skin rashes. NEUROLOGIC: No headaches, diplopia or blurred vision. MEDICATIONS: List was reviewed. ALLERGIES: No known drug allergies. PHYSICAL EXAMINATION: VITAL SIGNS: The patient was in no respiratory distress on room air saturation greater than 97%. HEENT: Eyes, the sclerae were nonicteric. NECK: Jugular venous distention was not elevated. No lymphadenopathy. CHEST: Full expansion. LUNGS: Adequate airway flow with no wheezes. CARDIOVASCULAR: Regular rate and rhythm with S1, S2, no S3. ABDOMEN: Soft, nontender, nondistended. EXTREMITIES: No clubbing, cyanosis or edema. NEUROLOGIC: The patient was awake, alert, following commands. A detailed neuro exam was not performed. LABORATORY DATA: Reviewed once again D-dimer was slightly elevated 1.85. Electrolytes were noted. BUN and creatinine were noted. UA was noted. Patient had CT chest, abdomen and pelvis. I reviewed the CT chest, no acute infiltrates, no consolidations. IMPRESSION: 1. Abnormal D-dimer, nonspecific. 2. Recent mechanical fall. 3. T11 compression fracture. 4. CT chest with no evidence of pathology. PLAN: Clinical presentation is not compatible with PE. I do not recommend additional workup. I will sign off. Please call if needed. VALENTINA SINGH MD DR: FREDDY/king JOB#: [id number] / [id number]
--- NOTE | 2019-02-17 02:42 | CONS ---
DATE OF CONSULTATION: 02/16/2019 I saw her at the request of Dr. Wsahington for rehab evaluation. HISTORY OF PRESENT ILLNESS: This is a 68-year-old female complains of headache, neck and shoulder area pain and upper back pain since she fell on 02/15/2019 at her son's house coming down the stairs. The patient was admitted through the Emergency Room, had radiological studies, which revealed frontal hematoma and also acute T11 vertebral body compression fracture without any retropulsion of the bone fragment into the central spinal canal. The patient admits some tingling and numbness in her hands on occasion. The patient admits some neck pain. 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 The patient with known hypothyroidism, somewhat noncompliance, status post hysterectomy, oophorectomy, right elbow surgery in the past. Family history of coronary artery disease. She is not known allergic to any medication. The patient admits some nausea after she took tramadol this afternoon. PHYSICAL EXAMINATION: Today revealed a middle-aged female. She is alert, oriented to time, place, person and circumstance and follows commands appropriately, moves all 4 extremities voluntarily where she had 4+/5 grade muscle strength and deep tendon reflexes are brisk, overall, especially slightly exaggerated at both knees. She had equal perception of touch and pinprick sensation bilaterally. She had painful limited movements of her cervical and upper thoracic spine area, tenderness to palpation over cervical paraspinal muscles extending over to upper and mid thoracic paraspinal muscles and also left shoulder bruised area, left anterolateral aspect proximally. No significant pain on range of motion of her left shoulder. She had some pain on movement of her neck. She had no difficulty with bed mobility and transfers and up walking at bedside. ASSESSMENT: A middle-aged female with recent fall and scalp hematoma and also T11 vertebral body compression fracture and also cervical and thoracic and left shoulder sprain. I am concerned with her hyperreflexia at her knees. She is having some degree of cervical spinal stenosis. CT scan of the cervical spine revealed multilevel degenerative disk disease and degenerative joint disease. RECOMMENDATION: To try physical modalities and stretching exercises and to consider MRI scan of her cervical vertebrae to be done on an outpatient basis. Home when medically stable with outpatient followup. Dr. Washington, I appreciate asking me to participate in the care of this interesting patient. I will be glad to follow her with you as needed for her rehabilitation. MELANIA VINCENT MD DR: CHIQUITA/king JOB#: [id number] / [id number]
[2019-02-17 03:30] VITALS: BP 110/54
[2019-02-17] MEDS: HYDROcodone/APAP 7.5/325MG 1 TAB TABLET PO PRN (04:08)
[2019-02-17] MEDS: LEVOTHYROXINE 75 MCG TABLET PO SCH (06:22)
[2019-02-17 06:23] LABS: BASO % 0 % (0-3); EOS % 0 % (0-3); HEMOGLOBIN 13.1 g/dL (12.0-15.5); LYMPH # 1.9 x10^3/uL (1.0-4.8); LYMPH % 23 % (24-48); MEAN CORPUSCULAR HEMOGLOBIN 32 pg (25-35); MEAN CORPUSCULAR HGB CONC 34 g/dL (31-37); MEAN CORPUSCULAR VOLUME 96 fL (79-100); MONO # 0.7 x10^3/uL (0.0-1.1); MONO % 8 % (0-9); NEUT # 5.9 x10^3uL (1.8-7.7); NEUT % 69 % (31-73); PLATELET COUNT 259 x10^3/uL (140-400); RED BLOOD COUNT 4.05 x10^6/uL (3.50-5.40); RED CELL DISTRIBUTION WIDTH 13.4 % (11.5-14.5); WHITE BLOOD COUNT 8.6 x10^3/uL (4.0-11.0)
[2019-02-17 06:28] LABS: CALCIUM 9.2 mg/dL (8.5-10.1); CREATININE 0.8 mg/dL (0.6-1.0); GFR 71.5; POTASSIUM 4.4 mmol/L (3.5-5.1)
[2019-02-17 07:00] VITALS: BP 136/66
[2019-02-17] MEDS: PANTOPRAZOLE 40 MG TABLET.DR. PO SCH (07:59)
[2019-02-17] MEDS: CITALOPRAM 20 MG TABLET. PO SCH (07:59)
[2019-02-17] MEDS: predniSONE 10 MG TABLET PO SCH (08:00)
[2019-02-17] MEDS: METOPROLOL TART IMMED RELEASE 25 MG TABLET. PO SCH (08:00)
[2019-02-17] MEDS ORDERED: LISINOPRIL 20 MG TABLET PO SCH (09:00)
--- NOTE | 2019-02-17 09:31 | PDOC ---
PROGRESS NOTES Subjective Subjective She admits mild pain left upper back area. Objective Objective Vital Signs Date Time Temp Pulse Resp B/P (MAP) Pulse Ox O2 Delivery O2 Flow Rate FiO2 02/17/19 08:01 56 136/66 02/17/19 07:00 98.6 16 99 Room Air 98.6 02/16/19 08:00 97.0 Intake and Output 02/17/19 07:00 Intake Total 300 ml Output Total 1900 ml Balance -1600 ml Intake Oral 300 ml Output Urine Total 1900 ml # Voids 1 Physical Exam Physical Exam She is alert and comfortable and had minimal tenderness to palpation over left upper thoracic paraspinal muscles and she had pain free ROM of cervical and thoraco lumbar spine and she is independent with her mobility,including walking on her tip toes,heels and on a straight line without any pain or loss of balance. Plan Plan of Care I have reviewed with her home exercises to help ease left upper thoracic muscle strain and home with out patient follow up when medically stable. Comment Review of Relevant I have reviewed the following items david (where applicable) has been applied. Labs Laboratory Tests Test 02/15/19 15:35 02/15/19 16:30 02/15/19 20:45 02/16/19 05:40 White Blood Count 12.8 x10^3/uL (4.0-11.0) 9.2 x10^3/uL (4.0-11.0) Red Blood Count 4.37 x10^6/uL (3.50-5.40) 4.14 x10^6/uL (3.50-5.40) Hemoglobin 14.2 g/dL (12.0-15.5) 13.7 g/dL (12.0-15.5) Hematocrit 41.7 % (36.0-47.0) 39.4 % (36.0-47.0) Mean Corpuscular Volume 95 fL (79-100) 95 fL (79-100) Mean Corpuscular Hemoglobin 32 pg (25-35) 33 pg (25-35) Mean Corpuscular Hemoglobin Concent 34 g/dL (31-37) 35 g/dL (31-37) Red Cell Distribution Width 13.2 % (11.5-14.5) 13.2 % (11.5-14.5) Platelet Count 279 x10^3/uL (140-400) 267 x10^3/uL (140-400) Neutrophils (%) (Auto) 71 % (31-73) 66 % (31-73) Lymphocytes (%) (Auto) 20 % (24-48) 22 % (24-48) Monocytes (%) (Auto) 7 % (0-9) 10 % (0-9) Eosinophils (%) (Auto) 2 % (0-3) 2 % (0-3) Basophils (%) (Auto) 0 % (0-3) 0 % (0-3) Neutrophils # (Auto) 9.0 x10^3uL (1.8-7.7) 6.1 x10^3uL (1.8-7.7) Lymphocytes # (Auto) 2.6 x10^3/uL (1.0-4.8) 2.0 x10^3/uL (1.0-4.8) Monocytes # (Auto) 0.8 x10^3/uL (0.0-1.1) 0.9 x10^3/uL (0.0-1.1) Eosinophils # (Auto) 0.3 x10^3/uL (0.0-0.7) 0.2 x10^3/uL (0.0-0.7) Basophils # (Auto) 0.0 x10^3/uL (0.0-0.2) 0.0 x10^3/uL (0.0-0.2) Prothrombin Time 12.2 SEC (11.7-14.0) Prothromb Time International Ratio 0.9 (0.8-1.1) Activated Partial Thromboplast Time 25 SEC (24-38) D-Dimer (Karin) 1.85 ug/mlFEU (0.00-0.50) Sodium Level 139 mmol/L (136-145) 142 mmol/L (136-145) Potassium Level 3.7 mmol/L (3.5-5.1) 4.7 mmol/L (3.5-5.1) Chloride Level 101 mmol/L (98-107) 105 mmol/L (98-107) Carbon Dioxide Level 26 mmol/L (21-32) 27 mmol/L (21-32) Anion Gap 12 (6-14) 10 (6-14) Blood Urea Nitrogen 19 mg/dL (7-20) 18 mg/dL (7-20) Creatinine 0.9 mg/dL (0.6-1.0) 0.9 mg/dL (0.6-1.0) Estimated GFR (Cockcroft-Gault) 62.5 62.5 BUN/Creatinine Ratio 21 (6-20) Glucose Level 112 mg/dL (70-99) 121 mg/dL (70-99) Calcium Level 9.5 mg/dL (8.5-10.1) 9.2 mg/dL (8.5-10.1) Magnesium Level 1.9 mg/dL (1.8-2.4) Total Bilirubin 0.5 mg/dL (0.2-1.0) Aspartate Amino Transf (AST/SGOT) 23 U/L (15-37) Alanine Aminotransferase (ALT/SGPT) 23 U/L (14-59) Alkaline Phosphatase 47 U/L (46-116) Creatine Kinase 121 U/L (26-192) Creatine Kinase MB (Mass) 2.9 ng/mL (0.0-3.6) Creatine Kinase MB Relative Index 2.4 % (0-4) Troponin I Quantitative < 0.017 ng/mL (0.000-0.055) < 0.017 ng/mL (0.000-0.055) < 0.017 ng/mL (0.000-0.055) OL-Miq-T-Type Natriuretic Peptide 165 pg/mL (0-124) Total Protein 7.7 g/dL (6.4-8.2) Albumin 4.1 g/dL (3.4-5.0) Albumin/Globulin Ratio 1.1 (1.0-1.7) Thyroid Stimulating Hormone (TSH) 12.445 uIU/mL (0.358-3.74) Urine Collection Type Unknown Urine Color Yellow Urine Clarity Clear Urine pH 5.5 Urine Specific [place] 1.020 Urine Protein Negative mg/dL (NEG-TRACE) Urine Glucose (UA) Negative mg/dL (NEG) Urine Ketones (Stick) Negative mg/dL (NEG) Urine Blood Trace (NEG) Urine Nitrite Negative (NEG) Urine Bilirubin Negative (NEG) Urine Urobilinogen Dipstick 0.2 mg/dL (0.2 mg/dL) Urine Leukocyte Esterase Negative (NEG) Urine RBC 1-2 /HPF (0-2) Urine WBC 1-4 /HPF (0-4) Urine Squamous Epithelial Cells Few /LPF Urine Bacteria 0 /HPF (0-FEW) Urine Hyaline Casts Few /HPF Urine Mucus Slight /LPF Urine Opiates Screen Neg (NEG) Urine Methadone Screen Neg (NEG) Urine Barbiturates Neg (NEG) Urine Phencyclidine Screen Neg (NEG) Urine Amphetamine/Methamphetamine Neg (NEG) Urine Benzodiazepines Screen Neg (NEG) Urine Cocaine Screen Neg (NEG) Urine Cannabinoids Screen Neg (NEG) Urine Ethyl Alcohol Neg (NEG) Triglycerides Level 218 mg/dL (0-150) Cholesterol Level 200 mg/dL (0-200) LDL Cholesterol, Calculated 119 mg/dL (0-100) VLDL Cholesterol, Calculated 44 mg/dL (0-40) Non-HDL Cholesterol Calculated 163 mg/dL (0-129) HDL Cholesterol 37 mg/dL (40-60) Cholesterol/HDL Ratio 5.4 Test 02/17/19 05:15 02/17/19 05:17 Sodium Level 138 mmol/L (136-145) Potassium Level 4.4 mmol/L (3.5-5.1) Chloride Level 100 mmol/L (98-107) Carbon Dioxide Level 29 mmol/L (21-32) Anion Gap 9 (6-14) Blood Urea Nitrogen 13 mg/dL (7-20) Creatinine 0.8 mg/dL (0.6-1.0) Estimated GFR (Cockcroft-Gault) 71.5 Glucose Level 131 mg/dL (70-99) Calcium Level 9.2 mg/dL (8.5-10.1) White Blood Count 8.6 x10^3/uL (4.0-11.0) Red Blood Count 4.05 x10^6/uL (3.50-5.40) Hemoglobin 13.1 g/dL (12.0-15.5) Hematocrit 39.0 % (36.0-47.0) Mean Corpuscular Volume 96 fL (79-100) Mean Corpuscular Hemoglobin 32 pg (25-35) Mean Corpuscular Hemoglobin Concent 34 g/dL (31-37) Red Cell Distribution Width 13.4 % (11.5-14.5) Platelet Count 259 x10^3/uL (140-400) Neutrophils (%) (Auto) 69 % (31-73) Lymphocytes (%) (Auto) 23 % (24-48) Monocytes (%) (Auto) 8 % (0-9) Eosinophils (%) (Auto) 0 % (0-3) Basophils (%) (Auto) 0 % (0-3) Neutrophils # (Auto) 5.9 x10^3uL (1.8-7.7) Lymphocytes # (Auto) 1.9 x10^3/uL (1.0-4.8) Monocytes # (Auto) 0.7 x10^3/uL (0.0-1.1) Eosinophils # (Auto) 0.0 x10^3/uL (0.0-0.7) Basophils # (Auto) 0.0 x10^3/uL (0.0-0.2) Laboratory Tests Test 02/17/19 05:15 02/17/19 05:17 Sodium Level 138 mmol/L (136-145) Potassium Level 4.4 mmol/L (3.5-5.1) Chloride Level 100 mmol/L (98-107) Carbon Dioxide Level 29 mmol/L (21-32) Anion Gap 9 (6-14) Blood Urea Nitrogen 13 mg/dL (7-20) Creatinine 0.8 mg/dL (0.6-1.0) Estimated GFR (Cockcroft-Gault) 71.5 Glucose Level 131 mg/dL (70-99) Calcium Level 9.2 mg/dL (8.5-10.1) White Blood Count 8.6 x10^3/uL (4.0-11.0) Red Blood Count 4.05 x10^6/uL (3.50-5.40) Hemoglobin 13.1 g/dL (12.0-15.5) Hematocrit 39.0 % (36.0-47.0) Mean Corpuscular Volume 96 fL (79-100) Mean Corpuscular Hemoglobin 32 pg (25-35) Mean Corpuscular Hemoglobin Concent 34 g/dL (31-37) Red Cell Distribution Width 13.4 % (11.5-14.5) Platelet Count 259 x10^3/uL (140-400) Neutrophils (%) (Auto) 69 % (31-73) Lymphocytes (%) (Auto) 23 % (24-48) Monocytes (%) (Auto) 8 % (0-9) Eosinophils (%) (Auto) 0 % (0-3) Basophils (%) (Auto) 0 % (0-3) Neutrophils # (Auto) 5.9 x10^3uL (1.8-7.7) Lymphocytes # (Auto) 1.9 x10^3/uL (1.0-4.8) Monocytes # (Auto) 0.7 x10^3/uL (0.0-1.1) Eosinophils # (Auto) 0.0 x10^3/uL (0.0-0.7) Basophils # (Auto) 0.0 x10^3/uL (0.0-0.2) Medications Current Medications Nitroglycerin (Nitrostat) 0.4 mg PRN Q5MIN PRN SL CP RATING > 1/10 Last administered on 02/15/19at 16:25; Start 02/15/19 at 15:30; Stop 02/16/19 at 15:29; Status DC Morphine Sulfate (Morphine Sulfate) 2 mg PRN Q15MIN PRN IV/SQ PAIN GREATER THAN 3/10; Start 02/15/19 at 15:30; Stop 02/16/19 at 15:29; Status DC Iohexol (Omnipaque 300 Mg/ml) 75 ml 1X ONCE IV Last administered on 02/15/19at 16:20; Start 02/15/19 at 16:15; Stop 02/15/19 at 16:16; Status DC Info (CONTRAST GIVEN -- Rx MONITORING) 1 each PRN DAILY PRN MC SEE COMMENTS; Start 02/15/19 at 16:15; Stop 02/17/19 at 16:14 Aspirin (Elroy Aspirin) 325 mg 1X ONCE PO Last administered on 02/15/19at 17:58; Start 02/15/19 at 18:00; Stop 02/15/19 at 18:01; Status DC Citalopram Hydrobromide (CeleXA) 20 mg DAILY PO Last administered on 02/17/19at 07:59; Start 02/16/19 at 09:00 Levothyroxine Sodium (Synthroid) 100 mcg DAILY06 PO ; Start 02/16/19 at 06:00; Stop 02/16/19 at 06:00; Status DC Metoprolol Tartrate (Lopressor) 25 mg DAILY PO Last administered on 02/17/19at 08:00; Start 02/16/19 at 09:00 Pantoprazole Sodium (Protonix) 40 mg DAILYAC PO Last administered on 02/16/19at 10:39; Start 02/16/19 at 07:30; Stop 02/16/19 at 15:56; Status DC Tramadol HCl (Ultram) 50 mg PRN Q6HRS PRN PO PAIN Last administered on 02/16/19at 09:04; Start 02/15/19 at 18:15; Stop 02/16/19 at 15:56; Status DC Acetaminophen/ Aspirin/Caffeine (Excedrin Migraine) 1 tab PRN Q6HRS PRN PO MIGRAINE HEADACHE; Start 02/15/19 at 19:30 Ondansetron HCl (Zofran) 4 mg PRN Q8HRS PRN IV NAUSEA/VOMITING Last administered on 02/16/19at 11:26; Start 02/15/19 at 18:15; Stop 02/16/19 at 18:14; Status DC Morphine Sulfate (Morphine Sulfate) 4 mg PRN Q2HR PRN IV PAIN; Start 02/15/19 at 18:15; Stop 02/16/19 at 18:14; Status DC Acetaminophen (Tylenol) 650 mg PRN Q4HRS PRN PO FEVER Last administered on 02/16/19at 16:18; Start 02/15/19 at 18:15; Stop 02/16/19 at 18:14; Status DC Nitroglycerin (Nitrostat) 0.4 mg PRN Q5MIN PRN SL CHEST PAIN; Start 02/15/19 at 18:15; Stop 02/16/19 at 18:14; Status DC Levothyroxine Sodium (Synthroid) 125 mcg DAILY06 PO ; Start 02/16/19 at 06:00; Stop 02/16/19 at 06:00; Status DC Levothyroxine Sodium (Synthroid) 75 mcg DAILY06 PO Last administered on 02/17/19at 06:22; Start 02/16/19 at 06:00 Lisinopril (Prinivil) 10 mg DAILY PO Last administered on 02/16/19at 10:40; Start 02/15/19 at 23:00; Stop 02/16/19 at 15:24; Status DC Ondansetron HCl (Zofran Odt) 4 mg PRN Q6HRS PRN PO NAUSEA/VOMITING; Start 02/16/19 at 13:45 Lisinopril (Prinivil) 20 mg DAILY PO Last administered on 02/17/19 08:01; Start 02/17/19 at 09:00 Lisinopril (Prinivil) 10 mg 1X ONCE PO Last administered on 02/16/19at 16:19; Start 02/16/19 at 15:30; Stop 02/16/19 at 15:31; Status DC Hydralazine HCl (Apresoline Inj) 10 mg PRN Q4HRS PRN IVP ELEVATED BP, SEE COMMENTS; Start 02/16/19 at 15:30; Status UNV Atorvastatin Calcium (Lipitor) 40 mg QHS PO Last administered on 02/16/19at 20:36; Start 02/16/19 at 21:00 Hydralazine HCl (Apresoline Inj) 10 mg PRN Q4HRS PRN IVP ELEVATED BP, SEE COMMENTS; Start 02/16/19 at 15:30 Acetaminophen/ Hydrocodone Bitart (Lortab 7.5/325) 1 tab PRN Q6HRS PRN PO PAIN Last administered on 02/17/19 04:08; Start 02/16/19 at 16:00 Tizanidine HCl (Zanaflex) 4 mg PRN Q8HRS PRN PO MUSCLE SPASMS; Start 02/16/19 at 16:00 Prednisone (Prednisone) 10 mg DAILY PO Last administered on 02/17/19at 08:00; Start 02/16/19 at 16:00 Pantoprazole Sodium (Protonix) 40 mg DAILYAC PO Last administered on 02/17/19 07:59; Start 02/16/19 at 16:00 Prochlorperazine (Compazine) 25 mg PRN Q12HR PRN MI NAUSEA/VOMITING Last administered on 02/16/19at 20:12; Start 02/16/19 at 16:00 Cyclobenzaprine HCl (Flexeril) 10 mg PRN BID PRN PO MUSCLE SPASMS, 2ND CHOICE Last administered on 02/16/19at 20:36; Start 02/16/19 at 19:30 Active Scripts Active Reported Levothyroxine Sodium 75 Mcg Tablet 75 Mcg PO DAILY Lisinopril 10 Mg Tablet 10 Mg PO DAILY Prodrin Caplet (Isometheptene/Acetaminoph/Caff) 1 Each Tablet 1 Each PO PRN Pantoprazole Sodium 40 Mg Tablet.dr 40 Mg PO DAILY Tramadol Hcl 50 Mg Tablet 50 Mg PO Q6H PRN Metformin Hcl 500 Mg Tablet 500 Mg PO BIDWMEALS Levothyroxine Sodium 175 Mcg Tablet 1 Tab PO DAILY Vitals/I & O Vital Sign - Last 24 Hours 02/16/19 02/16/19 02/16/19 02/16/19 10:39 10:40 11:00 15:00 Temp 98.2 97.7 98.2 97.7 Pulse 63 63 62 62 Resp 12 12 B/P (MAP) 145/75 145/75 168/72 (104) 157/86 (109) Pulse Ox 96 94 O2 Delivery Room Air Room Air 02/16/19 02/16/19 02/16/19 02/16/19 16:19 18:28 19:25 19:30 Temp 97.7 97.7 Pulse 62 60 Resp 18 20 20 B/P (MAP) 157/86 160/75 (103) Pulse Ox 91 O2 Delivery Room Air Room Air 02/16/19 02/16/19 02/17/19 02/17/19 19:30 23:05 03:30 04:08 Temp 97.9 98.1 97.9 98.1 Pulse 70 64 Resp 18 18 20 B/P (MAP) 168/87 (114) 110/54 (72) Pulse Ox 94 94 94 O2 Delivery Room Air Room Air Room Air Room Air 02/17/19 02/17/19 02/17/19 02/17/19 05:15 07:00 08:00 08:01 Temp 98.6 98.6 Pulse 56 56 56 Resp 16 B/P (MAP) 136/66 (89) 136/66 136/66 Pulse Ox 99 O2 Delivery Room Air Room Air Intake and Output 02/16/19 02/16/19 02/17/19 15:00 23:00 07:00 Intake Total 300 ml Output Total 400 ml 800 ml 700 ml Balance -400 ml -800 ml -400 ml MELANIA VINCENT MD February 17, 2019 09:31
--- NOTE | 2019-02-17 10:26 | PDOC ---
Provider Note Provider Note Report reviewed, images independently reviewed. [facility] [address] [place] [address] IMAGING REPORT Signed PATIENT: SAMIR ANAND ACCOUNT: [id number] : 1950 LOCATION: [address] [place] [address] AGE: 68 SEX: F EXAM STATUS: ADM IN ORD. PHYSICIAN: BRAD CRABTREE MD REASON: shoulder pain and popping after fall PROCEDURE: SHOULDER 2+V LEFT 3 views of the left shoulder dated 02/16/2019. No comparison available. Clinical data indication: Pain after fall. FINDINGS: 3 views left shoulder show normal bony alignment. No displaced fracture. No acute osseous or articular abnormality. Mild hypertrophic change of the AC joint. IMPRESSION: No acute findings. Electronically signed by: Bin Curran MD (02/16/2019 2:33 PM) [id number] DICTATED and SIGNED BY: BIN CURRAN MD DATE: 02/16/19 1433 BRAD CRABTREE MD February 17, 2019 10:26
[2019-02-17 11:00] VITALS: BP 121/62
--- NOTE | 2019-02-17 12:16 | PDOC ---
CARDIO Progress Notes Date and Time Date of Service 02/17/2019 Time of Evaluation 1150 Subjective Subjective: No Chest Pain, No shortness of breath, No Palpitations Vitals Vitals Vital Signs Date Time Temp Pulse Resp B/P (MAP) Pulse Ox O2 Delivery O2 Flow Rate FiO2 02/17/19 08:01 56 136/66 02/17/19 08:00 Room Air 02/17/19 07:00 98.6 16 99 98.6 02/16/19 08:00 97.0 Weight Weight [ ] Input and Output Intake and Output Intake and Output 02/17/19 06:59 Intake Total 300 ml Output Total 1900 ml Balance -1600 ml Intake Oral 300 ml Output Urine Total 1900 ml Laboratory Labs Laboratory Tests Test 02/17/19 05:15 02/17/19 05:17 Sodium Level 138 mmol/L (136-145) Potassium Level 4.4 mmol/L (3.5-5.1) Chloride Level 100 mmol/L (98-107) Carbon Dioxide Level 29 mmol/L (21-32) Anion Gap 9 (6-14) Blood Urea Nitrogen 13 mg/dL (7-20) Creatinine 0.8 mg/dL (0.6-1.0) Estimated GFR (Cockcroft-Gault) 71.5 Glucose Level 131 mg/dL (70-99) Calcium Level 9.2 mg/dL (8.5-10.1) White Blood Count 8.6 x10^3/uL (4.0-11.0) Red Blood Count 4.05 x10^6/uL (3.50-5.40) Hemoglobin 13.1 g/dL (12.0-15.5) Hematocrit 39.0 % (36.0-47.0) Mean Corpuscular Volume 96 fL (79-100) Mean Corpuscular Hemoglobin 32 pg (25-35) Mean Corpuscular Hemoglobin Concent 34 g/dL (31-37) Red Cell Distribution Width 13.4 % (11.5-14.5) Platelet Count 259 x10^3/uL (140-400) Neutrophils (%) (Auto) 69 % (31-73) Lymphocytes (%) (Auto) 23 % (24-48) Monocytes (%) (Auto) 8 % (0-9) Eosinophils (%) (Auto) 0 % (0-3) Basophils (%) (Auto) 0 % (0-3) Neutrophils # (Auto) 5.9 x10^3uL (1.8-7.7) Lymphocytes # (Auto) 1.9 x10^3/uL (1.0-4.8) Monocytes # (Auto) 0.7 x10^3/uL (0.0-1.1) Eosinophils # (Auto) 0.0 x10^3/uL (0.0-0.7) Basophils # (Auto) 0.0 x10^3/uL (0.0-0.2) Physical Exam HEENT: Neck Supple W Full Motion Chest: Symmetric LUNGS: Clear to Auscultation Heart: S1S2, RRR (SR) Abdomen: Soft N/T Extremities: No Calf Tenderness Neurology: alert, oriented, follow commands Assessment Assessment 1. Mechanical fall, traumatic with T11 vertebral body fracture and left shou lder pain. Being treated medically and with rehab 2. Abnormal EKG; EKG with RBBB. No previous for comparison. EF and WM nml 3. Accelerated hypertension; controlled 4. Atypical CP: likely MSK 5. DM2. 6. Hypothyroidism; TSH 12 7. Asymptomatic SB: mainly while asleep lowest at low 40s. BB was resumed as an inpt. Recommendations Outpt stress test nml per pt last yr. DC metoprolol with noted bradycardia with hypothyroidism contributing. Statin. Continue higher dose of lisinopril. HBPM bid x1 week and if still elevated then may add chlorthalidone as an outpt. Defer to PCP May follow up in office PRN. ETHAN VIGIL APRN February 17, 2019 12:16
--- NOTE | 2019-02-17 12:40 | NUR ---
SS following up with discharge planning. PT recommended home independent at discharge. No discharge needs noted at this time. SS will continue to follow for discharge planning.
--- NOTE | 2019-02-17 13:52 | PDOC ---
[facility] PROGRESS NOTE Chief Complaint Chief Complaint Mechanical fall T-11 fracture Chest pain Hypothyroidism History of Present Illness History of Present Illness Patient seen and examined Periorbital Ecchymosis noted bilaterally She reports no new complaints and is in NAD Awaiting IR to see her prior to discharge as she has expressed interest in kyphoplasty Vitals Vitals Vital Signs Date Time Temp Pulse Resp B/P (MAP) Pulse Ox O2 Delivery O2 Flow Rate FiO2 02/17/19 11:00 98.7 68 14 121/62 (81) 95 Room Air 98.7 02/16/19 08:00 97.0 Physical Exam General: Alert, Oriented X3, Cooperative Heart: Regular rate, Normal S1, Normal S2, No murmurs Abdomen: Soft, No tenderness Extremities: Normal pulses, Other (lateral ecchymosis. Able to forward flex the shoulder to 135, and abduct to 90, with seemingly intact rotator cuff although she did have pain with activation of the supraspinatus. There is slight crepitus with range of motion which may indicate a small cuff tear or bursal inflammation. She also has mild tenderness at the acromioclavicular joint but no deformity at that joint. She has lateral ecchymosis and some tenderness about the deltoid insertion region on the lateral humerus. The distal neurovascular function is normal) Skin: No breakdown, Other (lateral shoulder/humerus ecchymosis, bilateral periorbital ecchymosis) Labs LABS Laboratory Tests Test 02/17/19 05:15 02/17/19 05:17 Sodium Level 138 mmol/L (136-145) Potassium Level 4.4 mmol/L (3.5-5.1) Chloride Level 100 mmol/L (98-107) Carbon Dioxide Level 29 mmol/L (21-32) Anion Gap 9 (6-14) Blood Urea Nitrogen 13 mg/dL (7-20) Creatinine 0.8 mg/dL (0.6-1.0) Estimated GFR (Cockcroft-Gault) 71.5 Glucose Level 131 mg/dL (70-99) Calcium Level 9.2 mg/dL (8.5-10.1) White Blood Count 8.6 x10^3/uL (4.0-11.0) Red Blood Count 4.05 x10^6/uL (3.50-5.40) Hemoglobin 13.1 g/dL (12.0-15.5) Hematocrit 39.0 % (36.0-47.0) Mean Corpuscular Volume 96 fL (79-100) Mean Corpuscular Hemoglobin 32 pg (25-35) Mean Corpuscular Hemoglobin Concent 34 g/dL (31-37) Red Cell Distribution Width 13.4 % (11.5-14.5) Platelet Count 259 x10^3/uL (140-400) Neutrophils (%) (Auto) 69 % (31-73) Lymphocytes (%) (Auto) 23 % (24-48) Monocytes (%) (Auto) 8 % (0-9) Eosinophils (%) (Auto) 0 % (0-3) Basophils (%) (Auto) 0 % (0-3) Neutrophils # (Auto) 5.9 x10^3uL (1.8-7.7) Lymphocytes # (Auto) 1.9 x10^3/uL (1.0-4.8) Monocytes # (Auto) 0.7 x10^3/uL (0.0-1.1) Eosinophils # (Auto) 0.0 x10^3/uL (0.0-0.7) Basophils # (Auto) 0.0 x10^3/uL (0.0-0.2) Review of Systems Review of Systems Patient denies N/V, abdominal pain Patient denies ROMERO Assessment and Plan Assessmemt and Plan Assessment: Mechanical fall T-11 fracture Chest pain Hypothyroidism- TSH 12.4 Plan: Cardiac Monitoring Pain meds prn Home meds PT/OT DVT ppx Full code Flexeril and Lortab upon discharge Awaiting IR consult- appreciate subspecialist input Cardio, Pulm, and ortho are currently following Comment Review of Relevant I have reviewed the following items david (where applicable) has been applied. Labs Laboratory Tests Test 02/15/19 15:35 02/15/19 16:30 02/15/19 20:45 02/16/19 05:40 White Blood Count 12.8 x10^3/uL (4.0-11.0) 9.2 x10^3/uL (4.0-11.0) Red Blood Count 4.37 x10^6/uL (3.50-5.40) 4.14 x10^6/uL (3.50-5.40) Hemoglobin 14.2 g/dL (12.0-15.5) 13.7 g/dL (12.0-15.5) Hematocrit 41.7 % (36.0-47.0) 39.4 % (36.0-47.0) Mean Corpuscular Volume 95 fL (79-100) 95 fL (79-100) Mean Corpuscular Hemoglobin 32 pg (25-35) 33 pg (25-35) Mean Corpuscular Hemoglobin Concent 34 g/dL (31-37) 35 g/dL (31-37) Red Cell Distribution Width 13.2 % (11.5-14.5) 13.2 % (11.5-14.5) Platelet Count 279 x10^3/uL (140-400) 267 x10^3/uL (140-400) Neutrophils (%) (Auto) 71 % (31-73) 66 % (31-73) Lymphocytes (%) (Auto) 20 % (24-48) 22 % (24-48) Monocytes (%) (Auto) 7 % (0-9) 10 % (0-9) Eosinophils (%) (Auto) 2 % (0-3) 2 % (0-3) Basophils (%) (Auto) 0 % (0-3) 0 % (0-3) Neutrophils # (Auto) 9.0 x10^3uL (1.8-7.7) 6.1 x10^3uL (1.8-7.7) Lymphocytes # (Auto) 2.6 x10^3/uL (1.0-4.8) 2.0 x10^3/uL (1.0-4.8) Monocytes # (Auto) 0.8 x10^3/uL (0.0-1.1) 0.9 x10^3/uL (0.0-1.1) Eosinophils # (Auto) 0.3 x10^3/uL (0.0-0.7) 0.2 x10^3/uL (0.0-0.7) Basophils # (Auto) 0.0 x10^3/uL (0.0-0.2) 0.0 x10^3/uL (0.0-0.2) Prothrombin Time 12.2 SEC (11.7-14.0) Prothromb Time International Ratio 0.9 (0.8-1.1) Activated Partial Thromboplast Time 25 SEC (24-38) D-Dimer (Karin) 1.85 ug/mlFEU (0.00-0.50) Sodium Level 139 mmol/L (136-145) 142 mmol/L (136-145) Potassium Level 3.7 mmol/L (3.5-5.1) 4.7 mmol/L (3.5-5.1) Chloride Level 101 mmol/L (98-107) 105 mmol/L (98-107) Carbon Dioxide Level 26 mmol/L (21-32) 27 mmol/L (21-32) Anion Gap 12 (6-14) 10 (6-14) Blood Urea Nitrogen 19 mg/dL (7-20) 18 mg/dL (7-20) Creatinine 0.9 mg/dL (0.6-1.0) 0.9 mg/dL (0.6-1.0) Estimated GFR (Cockcroft-Gault) 62.5 62.5 BUN/Creatinine Ratio 21 (6-20) Glucose Level 112 mg/dL (70-99) 121 mg/dL (70-99) Calcium Level 9.5 mg/dL (8.5-10.1) 9.2 mg/dL (8.5-10.1) Magnesium Level 1.9 mg/dL (1.8-2.4) Total Bilirubin 0.5 mg/dL (0.2-1.0) Aspartate Amino Transf (AST/SGOT) 23 U/L (15-37) Alanine Aminotransferase (ALT/SGPT) 23 U/L (14-59) Alkaline Phosphatase 47 U/L (46-116) Creatine Kinase 121 U/L (26-192) Creatine Kinase MB (Mass) 2.9 ng/mL (0.0-3.6) Creatine Kinase MB Relative Index 2.4 % (0-4) Troponin I Quantitative < 0.017 ng/mL (0.000-0.055) < 0.017 ng/mL (0.000-0.055) < 0.017 ng/mL (0.000-0.055) QJ-Dud-T-Type Natriuretic Peptide 165 pg/mL (0-124) Total Protein 7.7 g/dL (6.4-8.2) Albumin 4.1 g/dL (3.4-5.0) Albumin/Globulin Ratio 1.1 (1.0-1.7) Thyroid Stimulating Hormone (TSH) 12.445 uIU/mL (0.358-3.74) Urine Collection Type Unknown Urine Color Yellow Urine Clarity Clear Urine pH 5.5 Urine Specific [place] 1.020 Urine Protein Negative mg/dL (NEG-TRACE) Urine Glucose (UA) Negative mg/dL (NEG) Urine Ketones (Stick) Negative mg/dL (NEG) Urine Blood Trace (NEG) Urine Nitrite Negative (NEG) Urine Bilirubin Negative (NEG) Urine Urobilinogen Dipstick 0.2 mg/dL (0.2 mg/dL) Urine Leukocyte Esterase Negative (NEG) Urine RBC 1-2 /HPF (0-2) Urine WBC 1-4 /HPF (0-4) Urine Squamous Epithelial Cells Few /LPF Urine Bacteria 0 /HPF (0-FEW) Urine Hyaline Casts Few /HPF Urine Mucus Slight /LPF Urine Opiates Screen Neg (NEG) Urine Methadone Screen Neg (NEG) Urine Barbiturates Neg (NEG) Urine Phencyclidine Screen Neg (NEG) Urine Amphetamine/Methamphetamine Neg (NEG) Urine Benzodiazepines Screen Neg (NEG) Urine Cocaine Screen Neg (NEG) Urine Cannabinoids Screen Neg (NEG) Urine Ethyl Alcohol Neg (NEG) Triglycerides Level 218 mg/dL (0-150) Cholesterol Level 200 mg/dL (0-200) LDL Cholesterol, Calculated 119 mg/dL (0-100) VLDL Cholesterol, Calculated 44 mg/dL (0-40) Non-HDL Cholesterol Calculated 163 mg/dL (0-129) HDL Cholesterol 37 mg/dL (40-60) Cholesterol/HDL Ratio 5.4 Test 02/17/19 05:15 02/17/19 05:17 Sodium Level 138 mmol/L (136-145) Potassium Level 4.4 mmol/L (3.5-5.1) Chloride Level 100 mmol/L (98-107) Carbon Dioxide Level 29 mmol/L (21-32) Anion Gap 9 (6-14) Blood Urea Nitrogen 13 mg/dL (7-20) Creatinine 0.8 mg/dL (0.6-1.0) Estimated GFR (Cockcroft-Gault) 71.5 Glucose Level 131 mg/dL (70-99) Calcium Level 9.2 mg/dL (8.5-10.1) White Blood Count 8.6 x10^3/uL (4.0-11.0) Red Blood Count 4.05 x10^6/uL (3.50-5.40) Hemoglobin 13.1 g/dL (12.0-15.5) Hematocrit 39.0 % (36.0-47.0) Mean Corpuscular Volume 96 fL (79-100) Mean Corpuscular Hemoglobin 32 pg (25-35) Mean Corpuscular Hemoglobin Concent 34 g/dL (31-37) Red Cell Distribution Width 13.4 % (11.5-14.5) Platelet Count 259 x10^3/uL (140-400) Neutrophils (%) (Auto) 69 % (31-73) Lymphocytes (%) (Auto) 23 % (24-48) Monocytes (%) (Auto) 8 % (0-9) Eosinophils (%) (Auto) 0 % (0-3) Basophils (%) (Auto) 0 % (0-3) Neutrophils # (Auto) 5.9 x10^3uL (1.8-7.7) Lymphocytes # (Auto) 1.9 x10^3/uL (1.0-4.8) Monocytes # (Auto) 0.7 x10^3/uL (0.0-1.1) Eosinophils # (Auto) 0.0 x10^3/uL (0.0-0.7) Basophils # (Auto) 0.0 x10^3/uL (0.0-0.2) Laboratory Tests Test 02/17/19 05:15 02/17/19 05:17 Sodium Level 138 mmol/L (136-145) Potassium Level 4.4 mmol/L (3.5-5.1) Chloride Level 100 mmol/L (98-107) Carbon Dioxide Level 29 mmol/L (21-32) Anion Gap 9 (6-14) Blood Urea Nitrogen 13 mg/dL (7-20) Creatinine 0.8 mg/dL (0.6-1.0) Estimated GFR (Cockcroft-Gault) 71.5 Glucose Level 131 mg/dL (70-99) Calcium Level 9.2 mg/dL (8.5-10.1) White Blood Count 8.6 x10^3/uL (4.0-11.0) Red Blood Count 4.05 x10^6/uL (3.50-5.40) Hemoglobin 13.1 g/dL (12.0-15.5) Hematocrit 39.0 % (36.0-47.0) Mean Corpuscular Volume 96 fL (79-100) Mean Corpuscular Hemoglobin 32 pg (25-35) Mean Corpuscular Hemoglobin Concent 34 g/dL (31-37) Red Cell Distribution Width 13.4 % (11.5-14.5) Platelet Count 259 x10^3/uL (140-400) Neutrophils (%) (Auto) 69 % (31-73) Lymphocytes (%) (Auto) 23 % (24-48) Monocytes (%) (Auto) 8 % (0-9) Eosinophils (%) (Auto) 0 % (0-3) Basophils (%) (Auto) 0 % (0-3) Neutrophils # (Auto) 5.9 x10^3uL (1.8-7.7) Lymphocytes # (Auto) 1.9 x10^3/uL (1.0-4.8) Monocytes # (Auto) 0.7 x10^3/uL (0.0-1.1) Eosinophils # (Auto) 0.0 x10^3/uL (0.0-0.7) Basophils # (Auto) 0.0 x10^3/uL (0.0-0.2) Medications Current Medications Nitroglycerin (Nitrostat) 0.4 mg PRN Q5MIN PRN SL CP RATING > 1/10 Last administered on 02/15/19at 16:25; Start 02/15/19 at 15:30; Stop 02/16/19 at 15:29; Status DC Morphine Sulfate (Morphine Sulfate) 2 mg PRN Q15MIN PRN IV/SQ PAIN GREATER THAN 3/10; Start 02/15/19 at 15:30; Stop 02/16/19 at 15:29; Status DC Iohexol (Omnipaque 300 Mg/ml) 75 ml 1X ONCE IV Last administered on 02/15/19at 16:20; Start 02/15/19 at 16:15; Stop 02/15/19 at 16:16; Status DC Info (CONTRAST GIVEN -- Rx MONITORING) 1 each PRN DAILY PRN MC SEE COMMENTS; Start 02/15/19 at 16:15; Stop 02/17/19 at 16:14 Aspirin (Elroy Aspirin) 325 mg 1X ONCE PO Last administered on 02/15/19at 17:58; Start 02/15/19 at 18:00; Stop 02/15/19 at 18:01; Status DC Citalopram Hydrobromide (CeleXA) 20 mg DAILY PO Last administered on 02/17/19at 07:59; Start 02/16/19 at 09:00 Levothyroxine Sodium (Synthroid) 100 mcg DAILY06 PO ; Start 02/16/19 at 06:00; Stop 02/16/19 at 06:00; Status DC Metoprolol Tartrate (Lopressor) 25 mg DAILY PO Last administered on 02/17/19at 08:00; Start 02/16/19 at 09:00; Stop 02/17/19 at 12:13; Status DC Pantoprazole Sodium (Protonix) 40 mg DAILYAC PO Last administered on 02/16/19at 10:39; Start 02/16/19 at 07:30; Stop 02/16/19 at 15:56; Status DC Tramadol HCl (Ultram) 50 mg PRN Q6HRS PRN PO PAIN Last administered on 02/16/19at 09:04; Start 02/15/19 at 18:15; Stop 02/16/19 at 15:56; Status DC Acetaminophen/ Aspirin/Caffeine (Excedrin Migraine) 1 tab PRN Q6HRS PRN PO MIGRAINE HEADACHE Last administered on 02/17/19at 12:15; Start 02/15/19 at 19:30 Ondansetron HCl (Zofran) 4 mg PRN Q8HRS PRN IV NAUSEA/VOMITING Last administered on 02/16/19at 11:26; Start 02/15/19 at 18:15; Stop 02/16/19 at 18:14; Status DC Morphine Sulfate (Morphine Sulfate) 4 mg PRN Q2HR PRN IV PAIN; Start 02/15/19 at 18:15; Stop 02/16/19 at 18:14; Status DC Acetaminophen (Tylenol) 650 mg PRN Q4HRS PRN PO FEVER Last administered on 02/16/19at 16:18; Start 02/15/19 at 18:15; Stop 02/16/19 at 18:14; Status DC Nitroglycerin (Nitrostat) 0.4 mg PRN Q5MIN PRN SL CHEST PAIN; Start 02/15/19 at 18:15; Stop 02/16/19 at 18:14; Status DC Levothyroxine Sodium (Synthroid) 125 mcg DAILY06 PO ; Start 02/16/19 at 06:00; Stop 02/16/19 at 06:00; Status DC Levothyroxine Sodium (Synthroid) 75 mcg DAILY06 PO Last administered on 02/17at 06:22; Start 02/16/19 at 06:00 Lisinopril (Prinivil) 10 mg DAILY PO Last administered on 02/16/19at 10:40; Start 02/15/19 at 23:00; Stop 02/16/19 at 15:24; Status DC Ondansetron HCl (Zofran Odt) 4 mg PRN Q6HRS PRN PO NAUSEA/VOMITING; Start 02/16/19 at 13:45 Lisinopril (Prinivil) 20 mg DAILY PO Last administered on 02/17/19at 08:01; Start 02/17/19 at 09:00 Lisinopril (Prinivil) 10 mg 1X ONCE PO Last administered on 02/16/19at 16:19; Start 02/16/19 at 15:30; Stop 02/16/19 at 15:31; Status DC Hydralazine HCl (Apresoline Inj) 10 mg PRN Q4HRS PRN IVP ELEVATED BP, SEE COMMENTS; Start 02/16/19 at 15:30; Status UNV Atorvastatin Calcium (Lipitor) 40 mg QHS PO Last administered on 02/16/19at 20:36; Start 02/16/19 at 21:00 Hydralazine HCl (Apresoline Inj) 10 mg PRN Q4HRS PRN IVP ELEVATED BP, SEE COMMENTS; Start 02/16/19 at 15:30 Acetaminophen/ Hydrocodone Bitart (Lortab 7.5/325) 1 tab PRN Q6HRS PRN PO PAIN Last administered on 02/17/19at 04:08; Start 02/16/19 at 16:00 Tizanidine HCl (Zanaflex) 4 mg PRN Q8HRS PRN PO MUSCLE SPASMS; Start 02/16/19 at 16:00 Prednisone (Prednisone) 10 mg DAILY PO Last administered on 02/17/19at 08:00; Start 02/16/19 at 16:00 Pantoprazole Sodium (Protonix) 40 mg DAILYAC PO Last administered on 02/17/19 07:59; Start 02/16/19 at 16:00 Prochlorperazine (Compazine) 25 mg PRN Q12HR PRN HI NAUSEA/VOMITING Last administered on 02/16/19at 20:12; Start 02/16/19 at 16:00 Cyclobenzaprine HCl (Flexeril) 10 mg PRN BID PRN PO MUSCLE SPASMS, 2ND CHOICE Last administered on 02/16/19at 20:36; Start 02/16/19 at 19:30 Active Scripts Active Reported Levothyroxine Sodium 75 Mcg Tablet 75 Mcg PO DAILY Lisinopril 10 Mg Tablet 10 Mg PO DAILY Prodrin Caplet (Isometheptene/Acetaminoph/Caff) 1 Each Tablet 1 Each PO PRN Pantoprazole Sodium 40 Mg Tablet.dr 40 Mg PO DAILY Tramadol Hcl 50 Mg Tablet 50 Mg PO Q6H PRN Metformin Hcl 500 Mg Tablet 500 Mg PO BIDWMEALS Levothyroxine Sodium 175 Mcg Tablet 1 Tab PO DAILY Vitals/I & O Vital Sign - Last 24 Hours 02/16/19 02/16/19 02/16/19 02/16/19 15:00 16:19 18:28 19:25 Temp 97.7 97.7 97.7 97.7 Pulse 62 62 60 Resp 12 18 20 B/P (MAP) 157/86 (109) 157/86 160/75 (103) Pulse Ox 94 91 O2 Delivery Room Air Room Air Room Air 02/16/19 02/16/19 02/16/19 02/17/19 19:30 19:30 23:05 03:30 Temp 97.9 98.1 97.9 98.1 Pulse 70 64 Resp 20 18 18 B/P (MAP) 168/87 (114) 110/54 (72) Pulse Ox 94 94 O2 Delivery Room Air Room Air Room Air 02/17/19 02/17/19 02/17/19 02/17/19 04:08 05:15 07:00 08:00 Temp 98.6 98.6 Pulse 56 56 Resp 20 16 B/P (MAP) 136/66 (89) 136/66 Pulse Ox 94 99 O2 Delivery Room Air Room Air Room Air 02/17/19 02/17/19 02/17/19 08:00 08:01 11:00 Temp 98.7 98.7 Pulse 56 68 Resp 14 B/P (MAP) 136/66 121/62 (81) Pulse Ox 95 O2 Delivery Room Air Room Air Intake and Output 02/16/19 02/16/19 02/17/19 14:59 22:59 06:59 Intake Total 300 ml Output Total 400 ml 800 ml 700 ml Balance -400 ml -800 ml -400 ml DANILO HAMILTON III DO February 17, 2019 13:52
--- NOTE | 2019-02-17 14:54 | PDOC3 ---
[facility]-Dis[facility] Summary Date of Admission: Date of Admission: February 15, 2019 Date of Discharge: Date of Discharge: February 17, 2019 Admission Diagnosis: Admitting Diagnosis: Fall back pain Discharge Diagnosis: Discharge Diagnosis: Mechanical fall T-11 fracture Chest pain Hypothyroidism- TSH 12.4 Consults: Consults: Interventional radiology cardiology Procedures: Procedures: None Hospital Course: Hospital Course: Patient is a pleasant middle-aged female who basically fell down 7 steps and struck her head on a door Mrs. steel door she probably left a big dent in it Imaging showed a T11 compression fracture She also had an abrasion on her scalp We admitted the patient gave her aggressive physical therapy occupational therapy Consult interventional radiology to consider kyphoplasty Did pain management and basically of the past few days she is returned her baseline I examined her this morning her heart tones were normal her lungs were clear her abdomen was soft extreme is no edema she did have some ecchymosis on her head an d her both eyes but clinically she looks great she wants to go home Disposition: Disposition/Orders: D/C to Home Activity: Activity: Resume previous activity Diet: Diet: Regular Medications: Home Meds Reported Medications Levothyroxine Sodium (LEVOTHYROXINE SODIUM) 75 Mcg Tablet, 75 MCG PO DAILY for hypothyroid 02/15/19 Lisinopril (LISINOPRIL) 10 Mg Tablet, 10 MG PO DAILY for blood pressure 02/15/19 Isometheptene/Acetaminoph/Caff (PRODRIN CAPLET) 1 Each Tablet, 1 EACH PO PRN, TAB 04/17/17 Pantoprazole Sodium (PANTOPRAZOLE SODIUM) 40 Mg Tablet.dr, 40 MG PO DAILY, TAB 04/17/17 Tramadol Hcl (TRAMADOL HCL) 50 Mg Tablet, 50 MG PO Q6H PRN for PAIN, TAB 04/17/17 Metformin Hcl (METFORMIN HCL) 500 Mg Tablet, 500 MG PO BIDWMEALS for ANTI- DIABETIC, TAB 0 Refills 04/17/17 Levothyroxine Sodium (LEVOTHYROXINE SODIUM) 175 Mcg Tablet, 1 TAB PO DAILY, #30 TAB 5 Refills 04/17/17 Scheduled Isometheptene/Acetaminoph/Caff (Prodrin Caplet), 1 EACH PO PRN, (Reported) Levothyroxine Sodium (Levothyroxine Sodium), 1 TAB PO DAILY, (Reported) Levothyroxine Sodium (Levothyroxine Sodium), 75 MCG PO DAILY, (Reported) Lisinopril (Lisinopril), 10 MG PO DAILY, (Reported) Metformin Hcl (Metformin Hcl), 500 MG PO BIDWMEALS, (Reported) Pantoprazole Sodium (Pantoprazole Sodium), 40 MG PO DAILY, (Reported) Scheduled PRN Tramadol Hcl (Tramadol Hcl), 50 MG PO Q6H PRN for PAIN, (Reported) Total Time: Total Time: 33 minutes DANILO HAMILTON III DO February 17, 2019 14:54
--- NOTE | 2019-02-17 16:15 | NUR ---
Discharge Note: SAMIR ANAND [address] Discharge instructions and discharge home medications reviewed with Patient and a copy given. All questions have been answered and understanding verbalized. The following instructions and handouts were given: fall prevention and home safety education, vertebral fracture education, and medication education. Discontinued lines and drains: peripheral IV, tip intact. Patient discharged to home with self care via private vehicle. Patient left unit in stable condition with all personal belongings.
== END 2019-02-17 15:45 | disposition home or self-care (01) | DRG 552 ==
LOC: ER 14:51 → 2 NORTH 18:10
PROVIDERS: ADMIT Internal Medicine; ATTEND Internal Medicine
DX: S22.088A Other fracture of T11-T12 vertebra, initial encounter for closed fracture (principal); E11.9 Type 2 diabetes mellitus without complications; I10 Essential (primary) hypertension; E03.9 Hypothyroidism, unspecified; I45.10 Unspecified right bundle-branch block; K21.9 Gastro-esophageal reflux disease without esophagitis; K44.9 Diaphragmatic hernia without obstruction or gangrene; M47.9 Spondylosis, unspecified; M48.02 Spinal stenosis, cervical region; M50.30 Other cervical disc degeneration, unspecified cervical region; S00.01XA Abrasion of scalp, initial encounter; S00.03XA Contusion of scalp, initial encounter; S00.10XA Contusion of unspecified eyelid and periocular area, initial encounter; Y93.01 Activity, walking, marching and hiking; W10.9XXA Fall (on) (from) unspecified stairs and steps, initial encounter; M19.90 Unspecified osteoarthritis, unspecified site; W22.8XXA Striking against or struck by other objects, initial encounter; Z82.49 Family history of ischemic heart disease and other diseases of the circulatory system; Z83.3 Family history of diabetes mellitus; Z90.710 Acquired absence of both cervix and uterus; Z91.19 Patient's noncompliance with other medical treatment and regimen; Z91.81 History of falling; Y92.89 Other specified places as the place of occurrence of the external cause; Y99.8 Other external cause status
CPT/HCPCS: 36415; 70450; 71260; 72125; 73030; 74177; 80048; 80053; 80061; 80307; 81001; 82553; 83735; 83880; 84443; 84484; 85025; 85379; 85610; 85730; 93005; 93306; J2405; J7512; Q9967; 99285-25

== ENCOUNTER → 2019-04-21 | Outpatient (CLI) | payer MEDICARE ==
[~2019-04-21] MED LIST changes: +LEVO75TA5 PO; +LISI10TA2 PO; -PANT40TA5 PO; +PANT40TA77 PO
--- NOTE | 2019-04-21 12:15 | KCIC ---
MRI Brain without contrast History: Traumatic head injury. Headache. Technique: Multiplanar, multi sequential MR imaging was performed of the brain without contrast. Comparison: February 15, [address] Findings: No acute infarct. No intracranial hemorrhage. No mass effect. No hydrocephalus. Extra-axial spaces are unremarkable. Chronic left cerebellar infarcts. Mild facet degenerative/FLAIR hyperintensity within the hemispheric white matter, most often due to chronic microvascular ischemia. No evidence of gradient hypointense foci to suggest axonal shear injury or prior microhemorrhages. Imaged orbits are unremarkable. Tiny right medial maxillary sinus mucous retention cyst. The mastoid air cells are clear. Impression: 1. No acute intracranial abnormality. 2. Chronic left cerebellar small infarct. 3. Mild sequela of chronic microvascular ischemia. Electronically signed by: Home Marshall DO (04/21/2019 12:12 PM) [id number]
== END | disposition home or self-care (01) ==
LOC: KCIC MRI 10:25
PROVIDERS: ATTEND Family Medicine
DX: I67.82 Cerebral ischemia (principal); I63.9 Cerebral infarction, unspecified; J34.1 Cyst and mucocele of nose and nasal sinus; S09.90XD Unspecified injury of head, subsequent encounter; X58.XXXD Exposure to other specified factors, subsequent encounter
CPT/HCPCS: 70551

== ENCOUNTER → 2019-07-07 | Outpatient (CLI) | payer MEDICARE | END | disposition home or self-care (01) | LOC: LAB 14:24 | PROVIDERS: ATTEND Psychiatry & Neurology Neurology with Special Qualifications in Child Neurology | DX: G43.809 Other migraine, not intractable, without status migrainosus (principal) | CPT/HCPCS: 36415; 85651 ==

== ENCOUNTER → 2020-09-12 | Outpatient (CLI) | payer MEDICARE ==
[~2020-09-12] MED LIST changes: +LIDOCAINE 1% Multi-Dose 20 ML VIAL. ID ONE; +LIDOCAINE 1% Multi-Dose 20 ML VIAL. ONE; +ROPIVacaine 0.5% PF 20 ML VIAL. IJ ONE; +methylPREDNISolone ACETATE 80 MG/ML VIAL. IM ONE
--- NOTE | 2020-09-12 15:25 | RAD ---
EXAM: Ultrasound guided right ischial bursa injection INDICATION: Right ischial bursitis COMPARISON: None TECHNIQUE/FINDINGS: The purpose of the procedure and risks including infection, bleeding, allergic reaction, and pain were discussed with the patient. Informed consent was obtained. A timeout was performed. After obtaining consent, the patient was placed prone on the ultrasound table and the hamstrings tendon and ischial tuberosity were identified. The skin overlying the right ischial tuberosity was marked, sterilized and draped. Superficial and deep soft tissues were anesthetized with 1% lidocaine. Utilizing continuous ultrasound guidance, a 22-gauge 3.5" needle was advanced from a lateral to medial approach to the ischial tuberosity and a solution containing 3 mL ropivacaine (0.5 percent) and 1 mL Depo-Medrol (80 mg/mL) was injected into the bursa. The needle was removed and skin cleansed and covered with a Band-Aid. The patient tolerated the procedure well and left in stable condition. IMPRESSION: Technically successful ultrasound-guided right ischial bursa injection of steroid and anesthetic. Electronically signed by: Shayla Zambrano MD (09/12/2020 3:21 PM) [id number]
== END | disposition home or self-care (01) ==
LOC: US 09:18
PROVIDERS: ATTEND Nurse Practitioner Gerontology
DX: M70.71 Other bursitis of hip, right hip (principal); I10 Essential (primary) hypertension; K21.9 Gastro-esophageal reflux disease without esophagitis; E66.9 Obesity, unspecified; M19.90 Unspecified osteoarthritis, unspecified site; E03.9 Hypothyroidism, unspecified; E11.9 Type 2 diabetes mellitus without complications; Z90.710 Acquired absence of both cervix and uterus; Z98.890 Other specified postprocedural states; Z79.84 Long term (current) use of oral hypoglycemic drugs; Z79.899 Other long term (current) drug therapy; Z85.828 Personal history of other malignant neoplasm of skin
CPT/HCPCS: 20611; J1040; J2795; J3490; 76942

== ENCOUNTER → 2021-03-07 | Outpatient (CLI) | payer MEDICARE ==
[~2021-03-07] MED LIST changes: +IOHEXOL 350 MG/ML 100 ML VIAL. IV ONE; -LIDOCAINE 1% Multi-Dose 20 ML VIAL. ID ONE; -LIDOCAINE 1% Multi-Dose 20 ML VIAL. ONE; +LISI10TA16 PO; -LISI10TA2 PO; -ROPIVacaine 0.5% PF 20 ML VIAL. IJ ONE; -methylPREDNISolone ACETATE 80 MG/ML VIAL. IM ONE
[2021-03-07 08:04] LABS: CALCIUM 9.1 mg/dL (8.5-10.1); CREATININE 1.3 mg/dL (0.6-1.0); GFR 40.6; POTASSIUM 5.1 mmol/L (3.5-5.1)
--- NOTE | 2021-03-07 09:05 | RAD ---
EXAMINATION: CTA Chest With IV contrast INDICATION:70 years, Female, shortness of breath. COMPARISON: 02/15/2019. TECHNIQUE: Spiral CTA was obtained from the jugular notch through the posterior costophrenic recess. 3-D MIPS, sagittal and coronal reformats were obtained. Exposure: One or more of the following individualized dose reduction techniques were utilized for thi s examination: 1. Automated exposure control 2. Adjustment of the mA and/or kV according to patient size 3. Use of iterative reconstruction technique. FINDINGS: LUNGS/PLEURA: Central airways are patent. No focal consolidation, pleural effusion or pneumothorax. N o suspicious pulmonary nodule. Unchanged few scattered 1-2 mm bilateral pulmonary nodules, for exampl e right middle lobe nodule measures 2 mm (series 3 image 81). Scattered calcified granulomas. MEDIASTINUM: No pathologic mediastinal or hilar adenopathy. Few calcified mediastinal lymph nodes. Th e thoracic aorta and pulmonary arteries are normal in caliber. No filling defect in the pulmonary art eries to suggest pulmonary embolism. The heart is normal in size. No pericardial effusion. No detecta ble calcified coronary atherosclerosis. The visualized thyroid and the esophagus are unremarkable. Sm all to moderate size hiatal hernia. AXILLA/SOFT TISSUE: No supraclavicular or axillary adenopathy. Regional soft tissues are within ariane l limits. UPPER ABDOMEN: Calcified granulomas in the spleen. BONES: No evidence of acute fractures or aggressive osseous lesions. Unchanged mild compression fract ure of T11 and lesser extent of T12 and T4 vertebral bodies. IMPRESSION: 1. No evidence of pulmonary embolism. 2. Unchanged a few scattered 1-2 mm bilateral pulmonary nodules. Continued attention on follow-up exa mination. 3. Similar small to moderate size hiatal hernia. Electronically signed by: Cassie Wayne MD (03/07/2021 9:02 AM) [id number]
== END ==
LOC: CT 07:24
PROVIDERS: ATTEND Family Medicine
DX: R91.1 Solitary pulmonary nodule (principal); K44.9 Diaphragmatic hernia without obstruction or gangrene
CPT/HCPCS: 36415; 71275; 80048; Q9967

== ENCOUNTER → 2021-05-18 | Outpatient (CLI) | payer MEDICARE ==
[~2021-05-18] MED LIST changes: -IOHEXOL 350 MG/ML 100 ML VIAL. IV ONE
--- NOTE | 2021-05-19 09:04 | RESP ---
DATE OF SERVICE: 05/18/2021 ATTENDING PHYSICIAN: Dr. Hager. The patient's FEV1 was 1.60, which is 80% predicted. The FEV1/FVC ratio was normal. FVC was 79% predicted. No bronchodilator was given. Lung volumes showed increased total lung capacity and increased residual volume. Diffusion capacity was normal. IMPRESSION: 1. No significant obstructive airway disease. 2. Lung volumes consistent with hyperinflation. 3. Normal diffusion capacity. 4. No bronchodilator was given. SALOMÓN DR: Ana Luisa TID: [id number]
== END ==
LOC: PF 09:40
PROVIDERS: ATTEND Internal Medicine Pulmonary Disease
DX: R06.02 Shortness of breath (principal)
CPT/HCPCS: 94010; 94726; 94729

== ENCOUNTER → 2021-06-28 | Outpatient (CLI) | payer MEDICARE ==
--- NOTE | 2021-07-03 07:42 | SLEEP ---
DATE OF STUDY: 06/28/2021 SLEEP STUDY ATTENDING PHYSICIAN: Dr. Emeterio Tanner. REFERRING PHYSICIAN: Dr. Valentina Singh. The patient is a 71-year-old, who weighs 191 pounds with a BMI of 34. The patient underwent diagnostic sleep study performed at [facility]. During the night of study, the patient spent 519 minutes in bed and slept for 395 minutes with a sleep efficiency of 76%. Sleep latency was 85 minutes with a REM latency of 364 minutes. Sleep architecture showed normal stage I sleep, increased stage II sleep, normal slow wave and reduced REM sleep. During the night of the study, the patient had 9 obstructive apneas, no mixed apneas, 2 central apneas and 93 hypopneas. The patient's AHI was 16 per hour, supine AHI of 20 per hour and then REM AHI of 36 per hour. EKG monitoring revealed no arrhythmias. Average heart rate 53 beats per minute. Nocturnal oximetry study revealed a mean oxygen saturation of 98% with a lowest of 80%. 8% of the time, oxygen saturation remained between 80% and 89%. No PLMs observed. Due to limited time, the patient did not meet the split night criteria for CPAP initiation. IMPRESSION: 1. Moderate obstructive sleep apnea with worsening during rapid eye movement sleep. Total apnea-hypopnea index of 16 per hour with a rapid eye movement apnea-hypopnea index of 36 per hour. 2. Mild nocturnal hypoxia secondary to obstructive sleep apnea. 3. No significant periodic limb movements. RECOMMENDATIONS: 1. The patient should return to the sleep lab for CPAP titration study. 2. Once the patient is optimally treated, then follow up in 4-6 weeks to assess compliance and to document clinical improvement. 3. Weight loss is advised. 4. Avoid [employer] depressants. 5. Cautioned regarding driving until symptoms of sleep apnea resolve with the use of CPAP. OG DR: Ana Luisa TID: [id number] CC: VALENTINA SINGH MD, EMETERIO TANNER MD
== END ==
LOC: SLPLAB 19:04
PROVIDERS: ATTEND Internal Medicine Pulmonary Disease
DX: G47.33 Obstructive sleep apnea (adult) (pediatric) (principal)
CPT/HCPCS: 95810